=== PATIENT | female | born 1980 | race Caucasian/White ===

== ENCOUNTER 2023-11-25 17:30 | Emergency (ER) | payer OTHER, SELFPAY ==
[2023-11-25 17:38] VITALS: BP 130/77; PULSE 70; RESP 16; O2SAT 100
[2023-11-25 17:43] LABS: Glucometer 34 mg/dL (74-106)
--- NOTE | 2023-11-25 17:58 | PC.NURSE ---
pt pulled out of vehicle -- pt is awake but not alert. very pale and diaphoretic. assisted into wheelchair. BS checked 34 upon arrival. STAT dextrose syringe admin IV through 20 gauge. pt is already starting to look and feel better. talking and making sense at this time. at bedside
[2023-11-25] MEDS: DEXTROSE 50 %-WATER 25 GM/50 ML SYRINGE IV (18:00)
--- NOTE | 2023-11-25 18:07 | ED_ITS ---
HPI - General Adult General Chief complaint: Weakness Stated complaint: hypoglycemia Time Seen by Provider: 11/25/23 18:02 Source: patient and family Mode of arrival: Wheelchair History of Present Illness HPI narrative: 43-year-old female presents to the emergency department with with report of low blood sugar. came home this afternoon to find her with decreased responsiveness. Triage nurse reports that patient was in her car when he found her. Patient is diabetic on both insulin and metformin. They discovered her blood sugar to be low when she got here, established IV, gave her D50 and currently patient is awake, alert x 3 and voices no complaints or concerns. agrees that patient appears to be at baseline. Quality:?as above Severity:?moderate Timing:?as above, improved Context: Normal setting and activity? Modifying factors:?none Associated symptoms: none Related Data Home Medications Medication Instructions Recorded Confirmed insulin glargine 100 unit/mL (3 25 unit subcut .QHS 11/25/23 11/25/23 mL) subcutaneous pen (Lantus Solostar U-100 Insulin) insulin lispro 100 unit/mL 1 sliding scale dose subcut TID 11/25/23 11/25/23 subcutaneous pen (Humalog KwikPen (U-100) Insulin) Allergies Allergy/AdvReac Type Severity Reaction Status Date / Time Unable to Assess Allergy Verified 11/25/23 17:40 Review of Systems ROS Narrative CONST: Denies fever, chills HENT: Denies congestion, sore throat EYES: Denies eye redness, visual disturbance RESP: Denies cough, shortness of breath CV: Denies chest pain, palpitations GI: Denies abd pain, nausea, vomiting : Denies dysuria, flank pain, frequency MS: Denies back pain, myalgias SKIN: + diaphoresis. Denies color change, rash NEURO: +change in responsiveness. Denies numbness, weakness PSYCHIATRIC: Denies confusion, agitation Exam Narrative Exam Narrative: Vital signs reviewed Nurses notes noted CONST: Nontoxic, well appearing, well nourished, in no distress.? No diaphoresis.?? HENT: normocephalic, atraumatic, moist mucous membrane, no abnormalities of the nose noted, hearing normal EYES: normal appearing conjunctiva, no apparent discharge bilat NECK: normal appearance CV: normal rate, regular rhythm, no murmur RESP: normal effort, speaking in complete sentences. Lung sounds clear and equal bilat.? No wheezes, rales, rhonchi GI: normal bowel sounds, soft, no distension, nontender : no CVA tenderness MS: no edema, tenderness SKIN: no pallor NEURO: A&Ox 3, no focal findings PSYCH: normal mood, affect Constitutional Vital Signs, click to edit/add: Last Vital Signs Temp 97.3 F L 11/25/23 20:25 Pulse 95 H 11/25/23 20:25 Resp 18 11/25/23 20:25 BP 141/83 11/25/23 20:25 Pulse Ox 100 11/25/23 20:25 O2 Del Method Room Air 11/25/23 20:25 Course Reevaluation(s) Reevaluation #1: Patient is asymptomatic. Repeat blood sugar 1/2 hr after eating was 151. Discussed with patient, , and father results, plan, and disposition. They are agreeable with plan. Time: 20:54 Vital Signs Vital signs: Vital Signs Pulse Rate 70 11/25/23 17:38 Respiratory Rate 16 11/25/23 17:38 Blood Pressure 130/77 11/25/23 17:38 Pulse Oximetry 100 11/25/23 17:38 Temperature 97.3 F L 11/25/23 20:25 Pulse Rate 95 H 11/25/23 20:25 Respiratory Rate 18 11/25/23 20:25 Blood Pressure 141/83 11/25/23 20:25 Pulse Oximetry 100 11/25/23 20:25 Oxygen Delivery Method Room Air 11/25/23 20:25 Medical Decision Making [facility] Narrative Medical decision making narrative: This is a pleasant 43-year-old female who presented to the emergency department with report of change in mental status. She is diabetic, takes insulin, as well as, metformin. Has been outpatient with decreased responsiveness, diaphoresis in her car prior to arrival. On arrival, nursing noted blood sugar to be 38 and administered D50 with almost immediate response. Patient was awake, alert, oriented x 3, lucid without complaints. She states she did take 8 units of insulin prior to eating lunch today. States she had sloppy Julian. On arrival, afebrile, vital signs otherwise stable. On exam, nontoxic, well-appearing patient in no apparent distress. She is not diaphoretic. Heart regular rate and rhythm. Lung sounds clear and equal bilaterally. Labs reveal white blood cell count of 15,000 without signs or symptoms of infection. No anemia, thrombocytopenia, electrolyte imbalance, renal impairment. LFTs unremarkable. Patient remained stable during ED course. Prior to eating, sugar did go down to 98, but she had received fast acting D50 prior to this. Half an hour after eating, blood sugar was stable above 150 and patient felt well enough to go home. Hypoglycemia, insulin reaction favored based on history and physical Infectious etiology less likely based on history and physical Disposition ? The patient was discharged. Plan: Patient will be discharged to home. Condition at time of disposition: stable ? Advised to follow up with her provider. Advised to return for any worsening and/or development of new, concerning signs or symptoms Lab Data Labs: Lab Results 11/25/23 11/25/23 11/25/23 Range/Units 17:37 18:10 18:27 WBC 15.4 H (4.0-11.0) 10^3/uL RBC 4.19 L (4.20-5.40) 10^6/uL Hgb 12.3 (12.0-16.0) g/dL Hct 37.6 (36.0-48.0) % MCV 89.7 (81.0-99.0) fL MCH 29.4 (26.7-34.0) pg MCHC 32.7 (29.9-35.2) g/dL RDW 12.7 (11.0-15.0) % Plt Count 247 (150-450) 10^3/uL MPV 11.4 (9.5-13.5) fL Neut % (Auto) 86.2 H (43.0-75.0) % Lymph % (Auto) 8.6 L (20.5-60.0) % [place] % (Auto) 3.9 (1.7-12.0) % Eos % (Auto) 0.3 L (0.9-7.0) % Baso % (Auto) 0.3 (0.2-2.0) % Neut # (Auto) 13.3 H (1.4-6.5) 10^3/uL Lymph # (Auto) 1.3 (1.2-3.8) 10^3/uL [place] # (Auto) 0.6 (0.3-0.8) 10^3/uL Eos # (Auto) 0.1 (0.0-0.7) 10^3/uL Baso # (Auto) 0.1 (0.0-0.1) 10^3/uL Abs Immat Gran (auto) 0.11 H (0.00-0.03) 10^3/uL Imm/Tot Granulo (auto) 0.7 H (0.0-0.5) % Sodium 138 (136-145) mmol/L Potassium 3.5 (3.5-5.1) mmol/L Chloride 103 (98-107) mmol/L Carbon Dioxide 23.9 (21.0-32.0) mmol/L Anion Gap 14.6 BUN 18.0 (7.0-18.0) mg/dL Creatinine 0.94 (0.55-1.02) mg/dL Est GFR ( Amer) >60 (>=60) Est GFR (Non-Af Amer) >60 (>=60) BUN/Creatinine Ratio 19.1 Glucose 122 H (74-106) mg/dL Calcium 9.3 (8.5-10.1) mg/dL Total Bilirubin 0.3 (0.2-1.0) mg/dL AST 10 L (15-37) U/L ALT 15 (14-59) U/L Alkaline Phosphatase 66 (46-116) U/L Total Protein 8.1 (6.4-8.2) g/dL Albumin 3.8 (3.4-5.0) g/dL Globulin 4.3 g/dL Albumin/Globulin Ratio 0.9 Serum HCG, Qual Negative (NEGATIVE) POC Glucose 34 L* 145 H (74-106) mg/dL 11/25/23 11/25/23 Range/Units 19:44 20:18 WBC (4.0-11.0) 10^3/uL RBC (4.20-5.40) 10^6/uL Hgb (12.0-16.0) g/dL Hct (36.0-48.0) % MCV (81.0-99.0) fL MCH (26.7-34.0) pg MCHC (29.9-35.2) g/dL RDW (11.0-15.0) % Plt Count (150-450) 10^3/uL MPV (9.5-13.5) fL Neut % (Auto) (43.0-75.0) % Lymph % (Auto) (20.5-60.0) % [place] % (Auto) (1.7-12.0) % Eos % (Auto) (0.9-7.0) % Baso % (Auto) (0.2-2.0) % Neut # (Auto) (1.4-6.5) 10^3/uL Lymph # (Auto) (1.2-3.8) 10^3/uL [place] # (Auto) (0.3-0.8) 10^3/uL Eos # (Auto) (0.0-0.7) 10^3/uL Baso # (Auto) (0.0-0.1) 10^3/uL Abs Immat Gran (auto) (0.00-0.03) 10^3/uL Imm/Tot Granulo (auto) (0.0-0.5) % Sodium (136-145) mmol/L Potassium (3.5-5.1) mmol/L Chloride (98-107) mmol/L Carbon Dioxide (21.0-32.0) mmol/L Anion Gap BUN (7.0-18.0) mg/dL Creatinine (0.55-1.02) mg/dL Est GFR ( Amer) (>=60) Est GFR (Non-Af Amer) (>=60) BUN/Creatinine Ratio Glucose (74-106) mg/dL Calcium (8.5-10.1) mg/dL Total Bilirubin (0.2-1.0) mg/dL AST (15-37) U/L ALT (14-59) U/L Alkaline Phosphatase (46-116) U/L Total Protein (6.4-8.2) g/dL Albumin (3.4-5.0) g/dL Globulin g/dL Albumin/Globulin Ratio Serum HCG, Qual (NEGATIVE) POC Glucose 95 151 H (74-106) mg/dL Discharge Plan Discharge Chief Complaint: Weakness Clinical Impression: Acute alteration in mental status, Hypoglycemia Patient Disposition: Home, Self-Care Time of Disposition Decision: 20:53 Condition: Good Mode of Transportation: Private Vehicle Prescriptions / Home Meds: No Action insulin glargine [Lantus Solostar U-100 Insulin] 100 unit/mL (3 mL) insulin pen 25 unit SUBCUT .QHS insulin lispro [Humalog KwikPen Insulin] 100 unit/mL insulin pen 1 sliding scale dose SUBCUT TID Rx Instructions: 6-8-10 UNITS WITH MEALS AND SLIDING SCALE # 2-UP TO 30 UNITS PER DAY Instructions: Hypoglycemia in a Person with Diabetes (ED) Stand Alone Forms: Portal Instructions Referrals: Dalton Bowens MD [Primary Care Provider] - 1 week Discharge Date/Time: 11/25/23 21:05
[2023-11-25 18:12] LABS: Glucometer 145 mg/dL (74-106)
[2023-11-25 18:35] LABS: Basophils Absolute Auto 0.1 10^3/uL (0.0-0.1); Basophils Percent Auto 0.3 % (0.2-2.0); Eosinophils Absolute Auto 0.1 10^3/uL (0.0-0.7); Eosinophils Percent Auto 0.3 % (0.9-7.0); Hematocrit 37.6 % (36.0-48.0); Hemoglobin 12.3 g/dL (12.0-16.0); Immature Granulocytes Abs Auto 0.11 10^3/uL (0.00-0.03); Immature Granulocytes Pct Auto 0.7 % (0.0-0.5); Lymphocytes Absolute Auto 1.3 10^3/uL (1.2-3.8); Lymphocytes Percent Auto 8.6 % (20.5-60.0); Mean Corpuscular HGB Conc 32.7 g/dL (29.9-35.2); Mean Corpuscular Hemoglobin 29.4 pg (26.7-34.0); Mean Corpuscular Volume 89.7 fL (81.0-99.0); Mean Platelet Volume 11.4 fL (9.5-13.5); Monocytes Absolute Auto 0.6 10^3/uL (0.3-0.8); Monocytes Percent Auto 3.9 % (1.7-12.0); Neutrophils Absolute Auto 13.3 10^3/uL (1.4-6.5); Neutrophils Percent Auto 86.2 % (43.0-75.0); Platelet Count 247 10^3/uL (150-450); Red Blood Count 4.19 10^6/uL (4.20-5.40); Red Cell Distribution Width 12.7 % (11.0-15.0); White Blood Count 15.4 10^3/uL (4.0-11.0)
[2023-11-25 18:47] LABS: HCG Qualitative NEGATIVE (NEGATIVE)
[2023-11-25 18:49] LABS: Alanine Aminotransferase 15 U/L (14-59); Albumin Globulin Ratio 0.9; Albumin Level 3.8 g/dL (3.4-5.0); Alkaline Phosphatase 66 U/L (46-116); Anion Gap 14.6; Aspartate Amino Transferase 10 U/L (15-37); BUN Creatinine Ratio 19.1; Bilirubin Total 0.3 mg/dL (0.2-1.0); Calcium 9.3 mg/dL (8.5-10.1); Carbon Dioxide 23.9 mmol/L (21.0-32.0); Chloride 103 mmol/L (98-107); Estimated GFR (African America >60 (>=60); Estimated GFR (Non-African Ame >60 (>=60); Globulin 4.3 g/dL; Glucose 122 mg/dL (74-106); Potassium 3.5 mmol/L (3.5-5.1); Sodium 138 mmol/L (136-145); Total Protein 8.1 g/dL (6.4-8.2)
[2023-11-25 19:10] VITALS: RESP 16
[2023-11-25 19:45] LABS: Glucometer 95 mg/dL (74-106)
[2023-11-25 20:19] LABS: Glucometer 151 mg/dL (74-106)
[2023-11-25 20:25] VITALS: BP 141/83; PULSE 95; RESP 18; TEMP 36.3; O2SAT 100
== END 2023-11-25 21:05 | disposition home or self-care (01) ==
PROVIDERS: Physician Assistant; Emergency Provider Emergency Medicine; PCP Family Medicine
DX: E11.649 Type 2 diabetes mellitus with hypoglycemia without coma (principal); Z79.4 Long term (current) use of insulin; Z79.84 Long term (current) use of oral hypoglycemic drugs; R41.82 Altered mental status, unspecified
CPT/HCPCS: 36415; 80053; 82948; 84703; 85025; 99284

== ENCOUNTER 2024-02-20 07:29 | Outpatient (OUT) | payer OTHER, SELFPAY ==
--- OUTSIDE RECORDS SUMMARY | 2024-02-20 07:33 | XMS_ITS | CCD ---
Author Organization [facility] Care Team Providers Care Blood Bank Custodian Name Role Phone Magnus Rincon Unavailable Unavailable Magnus Rincon Unavailable Unavailable Beltran London~[id number] UNKNOWN Unavailable Unavailable LITA, DR GONG Primary Care Unavailable SACHINY, DR GONG Admitting Unavailable LITA, DR GONG Attending Unavailable SACHINY, DR GONG Primary Care Unavailable SACHINY, DR GONG Admitting Unavailable HOY, DR GONG Attending Unavailable HOY, DR GONG Attending Unavailable HOY, DR GONG Consulting Unavailable SACHINY, DR GONG Primary Care Unavailable SACHINY, DR GONG Admitting Unavailable Problems Problem Classification Problem Date Documented Da te Episodic/Chronic Diabetes mellitus without complication (1 source) Type 2 diabetes mellitus without complications; Translations: [TYPE 2 DM WITHOUT COMPLICATIONS] Onset: 08-28-2022 Chronic Disorders of lipid metabolism (1 source) Hyperlipidemia, unspecified; Translations: [HYPERLIPIDEMIA UNSPECIFIED] Onset: 08-28-2022 Chronic Essential hypertension (1 source) Essential (primary) hypertension; Translations: [ESSENTIAL PRIMARY HYPERTENSION] Onset: 08-28-2022 Chronic Malaise and fatigue (4 sources) Other fatigue; Translations: [OTHER FATIGUE] Onset: 08-23-2022 Episodic Nutritional deficiencies (1 source) Vitamin D deficiency, unspecified; Translations: [VITAMIN D DEFICIENCY UNSPECIFIED] Onset: 08-28-2022 Chronic Results Test Name Value Interpretation Reference Range Facil ity INSULINon 08-25-2022 Insulin 5.3 uIU/mL Normal 2.6-24.9 [facility] Comment on above: Performed By: #### I NSULIN #### [facility] [address] [address] [address] Bo Soto CBC AUTO DIFFon 08-23-2022 BASO # 0.0 103/ul Normal 0.0-0.1 [facility] Comment on above: Performed By: #### C BC #### [facility] [address] [address] [address] Bo Soto Basophils/100 WBC (Bld) 0.4 % Normal 0.2-2.0 [facility] Comment on above: Performed By: #### C BC #### [facility] [address] [address] [address] Bo Soto EO # 0.2 103/ul Normal 0.0-0.7 [facility] Comment on above: Performed By: #### C BC #### [facility] [address] [address] [address] Bo Soto Eosinophils/100 WBC (Bld) 1.7 % Normal 0.9-7.0 [facility] Comment on above: Performed By: #### C BC #### [facility] [address] [place] [address] Dr. Bo Soto Erythrocyte distribution width (RBC) [Ratio] 11.9 % Normal 11.0-15.0 [facility] Comment on above: Performed By: #### C BC #### [facility] [address] [place] [address] Dr. Bo Soto Hematocrit (Bld) [Volume fraction] 41.8 % Normal 36.0-48.0 [facility] Comment on above: Performed By: #### C BC #### [facility] [address] [place] [address] Dr. Bo Soto Hemoglobin (Bld) [Mass/Vol] 13.9 g/dL Normal 12.0-16.0 [facility] Comment on above: Performed By: #### C BC #### [facility] [address] [place] [address] Dr. Bo Soto IG # 0.07 10e3/ul Critically high 0.00-0.[address] [facility] Comment on above: Performed By: #### C BC #### [facility] [address] [place] [address] Dr. Bo Soto IG % 0.8 % Critically high 0.0-0.5 [facility] Comment on above: Performed By: #### C BC #### [facility] [address] [place] [address] Dr. Bo Soto LYMPH # 3.9 103/ul Critically high 1.2-3.8 [facility] Comment on above: Performed By: #### C BC #### [facility] [address] [place] [address] Dr. Bo Soto Lymphocytes/100 WBC (Bld) 41.9 % Normal 20.5-60.0 [facility] Comment on above: Performed By: #### C BC #### [facility] [address] [place] [address] Dr. Bo Soto MANUAL DIFF REQ NO Normal [facility] Comment on above: Performed By: #### C BC #### [facility] [address] [place] [address] Dr. Bo Soto MCH (RBC) [Entitic mass] 29.2 pg Normal 26.7-34.0 [facility] Comment on above: Performed By: #### C BC #### [facility] [address] [place] [address] Dr. Bo Soto MCHC (RBC) [Mass/Vol] 33.3 g/dL Normal 29.9-35.2 [facility] Comment on above: Performed By: #### C BC #### [facility] [address] [place] [address] Dr. Bo Soto MCV (RBC) [Entitic vol] 87.8 fL Normal 81.0-99.0 [facility] Comment on above: Performed By: #### C BC #### [facility] [address] [place] [address] Dr. Bo Soto MONO # 0.4 103/ul Normal 0.3-0.8 [facility] Comment on above: Performed By: #### C BC #### [facility] [address] [place] [address] Dr. Bo Soto Monocytes/100 WBC (Bld) 4.8 % Normal 1.7-12.0 [facility] Comment on above: Performed By: #### C BC #### [facility] [address] [address] [address] Bo Soto NEUT # 4.7 103/ul Normal 1.4-6.5 [facility] Comment on above: Performed By: #### C BC #### [facility] [address] [place] [address] Dr. Bo Soto Neutrophils/100 WBC (Bld) 50.4 % Normal 43.0-75.0 [facility] Comment on above: Performed By: #### C BC #### [facility] [address] [place] [address] Dr. Bo Soto Platelet mean volume (Bld) [Entitic vol] 11.2 fL Normal 9.5-13.5 [facility] Comment on above: Performed By: #### C BC #### [facility] [address] [place] [address] Dr. Bo Soto PLT 284 103/ul Normal 150-450 [facility] Comment on above: Performed By: #### C BC #### [facility] [address] [place] [address] Dr. Bo Soto RBC 4.76 106/ul Normal 4.20-5.40 [facility] Comment on above: Performed By: #### C BC #### [facility] [address] [place] [address] Dr. Bo Soto WBC 9.2 103/ul Normal 4.0-11.0 [facility] Comment on above: Performed By: #### C BC #### [facility] [address] [place] [address] Dr. Bo Soto FREE T3on 08-23-2022 FREE T3 2.66 pg/mlL Normal 2.18-3.98 [facility] Comment on above: Performed By: #### L IPID, TSH, FT3, T4, CMP #### [facility] [address] [place] [address] Dr. Bo Soto GLYCOHEMOGLOBIN A1Con 2021 ADA RECOMMENDATION SEE BELOW Normal [facility] Comment on above: Result Comment: ADA RECOMMENDED LIMIT 4.0 - 6.0 ADA THERAPEUTIC TARGET < 7.0 ACTION SUGGESTED > 7.0 Performed By: #### A 1C #### [facility] [address] [address] [address] Bo Soto Glucose [Mass/Vol] 413 mg/dL Normal [facility] Comment on above: Performed By: #### A 1C #### [facility] [address] [address] [address] Bo Soto Glycohemoglobin A1c >16.0 Critically high 4.5-6.2 [facility] Comment on above: Performed By: #### A 1C #### [facility] [address] [address] [address] Bo Soto LIPID PROFILEon 08-23-2022 CHOL-HDL RATIO NORM SEE BELOW Normal [facility] Comment on above: Result Comment: 3.3 - 4.4 LOW RISK 4.4 - 7.1 AVERAGE RISK 7.1 - 11.0 MODERATE RISK >11.0 HIGH RISK Performed By: #### L IPID, TSH, FT3, T4, CMP #### [facility] [address] [address] [address] Bo Soto Cholesterol [Mass/Vol] 246 mg/dL Critically high <=200 [facility] Comment on above: Performed By: #### L IPID, TSH, FT3, T4, CMP #### [facility] [address] [address] [address] Bo Soto Cholesterol in HDL [Mass/Vol] 40 mg/dL Normal 40-60 [facility] Comment on above: Performed By: #### L IPID, TSH, FT3, T4, CMP #### [facility] [address] [address] [address] Bo Soto Cholesterol in LDL [Mass/Vol] 157.6 mg/dL Normal [facility] Comment on above: Performed By: #### L IPID, TSH, FT3, T4, CMP #### [facility] [address] [address] [address] Bo Soto Cholesterol.total/Cho lesterol in HDL [Mass ratio] 6.2 {ratio} Normal [facility] Comment on above: Performed By: #### L IPID, TSH, FT3, T4, CMP #### [facility] [address] [address] [address] Bo Soto HDL NORMAL > or = 60 mg/dl - LOW CARDIOVASCULAR RISK <40 mg/dl - HIGH CARDIOVASCULAR RISK Normal [facility] Comment on above: Performed By: #### L IPID, TSH, FT3, T4, CMP #### [facility] [address] [address] [address] Bo Soto LDL CALC NORMAL SEE BELOW Normal [facility] Comment on above: Result Comment: <100 mg/dl OPTIMAL 100 - 129 mg/dl NEAR OR ABOVE OPTIMAL 130 - 159 mg/dl BORDERLINE HIGH 160 - 189 mg/dl HIGH >190 mg/dl VERY HIGH Performed By: #### L IPID, TSH, FT3, T4, CMP #### [facility] [address] [place] [address] Dr. Bo Soto Triglyceride [Mass/Vol] 242 mg/dL Critically high <=150 [facility] Comment on above: Performed By: #### L IPID, TSH, FT3, T4, CMP #### [facility] [address] [address] [address] Bo Soto VLDL CALC 48.4 mg/dL Normal [facility] Comment on above: Performed By: #### L IPID, TSH, FT3, T4, CMP #### [facility] [address] [place] [address] Dr. Bo Soto PROF 14(COMP METB)on 022 Albumin [Mass/Vol] 3.7 g/dL Normal 3.4-5.0 [facility] Comment on above: Performed By: #### L IPID, TSH, FT3, T4, CMP #### [facility] [address] [address] [address] Bo Soto Albumin/Globulin [Mass ratio] 0.9 {ratio} Normal [facility] Comment on above: Performed By: #### L IPID, TSH, FT3, T4, CMP #### [facility] [address] [place] [address] Dr. Bo Soto ALP [Catalytic activity/Vol] 71 U/L Normal 46-116 [facility] Comment on above: Performed By: #### L IPID, TSH, FT3, T4, CMP #### [facility] [address] [place] [address] Dr. Bo Soto ALT [Catalytic activity/Vol] 23 U/L Normal 14-59 [facility] Comment on above: Performed By: #### L IPID, TSH, FT3, T4, CMP #### [facility] [address] [place] [address] Dr. Bo Soto Anion gap [Moles/Vol] 12.7 mmol/L Normal [facility] Comment on above: Performed By: #### L IPID, TSH, FT3, T4, CMP #### [facility] [address] [place] [address] Dr. Bo Soto AST [Catalytic activity/Vol] 11 U/L Critically low 15-37 [facility] Comment on above: Performed By: #### L IPID, TSH, FT3, T4, CMP #### [facility] [address] [place] [address] Dr. Bo Soto Bilirubin [Mass/Vol] 0.3 mg/dL Normal 0.2-1.0 [facility] Comment on above: Performed By: #### L IPID, TSH, FT3, T4, CMP #### [facility] [address] [place] [address] Dr. Bo Soto Calcium [Mass/Vol] 9.5 mg/dL Normal 8.5-10.1 [facility] Comment on above: Performed By: #### L IPID, TSH, FT3, T4, CMP #### [facility] [address] [place] [address] Dr. Bo Soto Chloride [Moles/Vol] 97 mmol/L Critically low 98-107 [facility] Comment on above: Performed By: #### L IPID, TSH, FT3, T4, CMP #### [facility] [address] [place] [address] Dr. Bo Soto CO2 [Moles/Vol] 26.5 mmol/L Normal 21.0-32.0 [facility] Comment on above: Performed By: #### L IPID, TSH, FT3, T4, CMP #### [facility] [address] [place] [address] Dr. Bo Soto Creatinine [Mass/Vol] 0.92 mg/dL Normal 0.55-1.02 [facility] Comment on above: Performed By: #### L IPID, TSH, FT3, T4, CMP #### [facility] [address] [place] [address] Dr. Bo Soto EGFR-AF VENEZUELAN >60 Normal >=60 [facility] Comment on above: Performed By: #### L IPID, TSH, FT3, T4, CMP #### [facility] [address] [place] [address] Dr. Bo Soto EGFR-NON AF VENEZUELAN >60 Normal >=60 [facility] Comment on above: Performed By: #### L IPID, TSH, FT3, T4, CMP #### [facility] [address] [place] [address] Dr. Bo Soto Globulin (S) [Mass/Vol] 4.2 g/dL Normal [facility] Comment on above: Performed By: #### L IPID, TSH, FT3, T4, CMP #### [facility] [address] [place] [address] Dr. Bo Soto Glucose [Mass/Vol] 371 mg/dL Critically high 74-106 [facility] Comment on above: Performed By: #### L IPID, TSH, FT3, T4, CMP #### [facility] [address] [place] [address] Dr. Bo Soto Potassium [Moles/Vol] 4.2 mmol/L Normal 3.5-5.1 [facility] Comment on above: Performed By: #### L IPID, TSH, FT3, T4, CMP #### [facility] [address] [place] [address] Dr. Bo Soto Protein [Mass/Vol] 7.9 g/dL Normal 6.4-8.2 [facility] Comment on above: Performed By: #### L IPID, TSH, FT3, T4, CMP #### [facility] [address] [place] [address] Dr. Bo Soto Sodium [Moles/Vol] 132 mmol/L Critically low 136-145 Th [facility] Comment on above: Performed By: #### L IPID, TSH, FT3, T4, CMP #### [facility] [address] [place] [address] Dr. Bo Soto Urea nitrogen [Mass/Vol] 17.0 mg/dL Normal 7.0-18.0 [facility] Comment on above: Performed By: #### L IPID, TSH, FT3, T4, CMP #### [facility] [address] [place] [address] Dr. Bo Soto Urea nitrogen/Creatinine [Mass ratio] 18.5 mg/mg Normal [facility] Comment on above: Performed By: #### L IPID, TSH, FT3, T4, CMP #### [facility] [address] [place] [address] Dr. Bo Soto T4on 08-23-2022 T4 [Mass/Vol] 10.30 ug/dL Normal 4.80-13.90 [facility] Comment on above: Performed By: #### L IPID, TSH, FT3, T4, CMP #### [facility] [address] [place] [address] Dr. Bo Soto TSHon 08-23-2022 TSH 1.231 uIU/mL Normal 0.358-3.740 [facility] Comment on above: Performed By: #### L IPID, TSH, FT3, T4, CMP #### [facility] [address] [place] [address] Dr. Bo Soto VITAMIN D 25 OHon 08-23-2022 VIT D 25-OH 18.8 ng/mL Normal [facility] Comment on above: Performed By: #### V ITAD #### [facility] [address] [place] [address] Dr. Bo Soto VIT D RANGES SEE BELOW Normal [facility] Comment on above: Result Comment: <20 ng/mL Vit D deficient 20 - <30 ng/mL Vit D insufficient 30 - 100 ng/mL Vit D sufficient >100 ng/mL Potential Toxicity Performed By: #### V ITAD #### [facility] [address] [address] [address] Bo Soto Encounters Encounter Date Encounter Type Care Provider Facility Start: 01-06-2024 End: 01-06-2024 ambulatory [facility] Work Phone: Start: 01-06-2024 End: 01-06-2024 Patient encounter procedure [facility] Work Phone: Start: 12-15-2023 Non-patient / Non-visit [facility] Work Phone: Start: 08-23-2022 End: 08-24-[address] BELTRAN LONDON Facility:[facility] Start: 05-01-[address] BELTRAN LONDON Facility :[facility] Start: 09-30-[address] BELTRAN LONDON Facility :[facility] Start: 03-19-2017 End: 03-19-2017 Emergency department patient visit Magnus Sergey [place] Payers Date Payer Category Payer Private Health Insurance [id number] 1980 Unknown [id number] 1980 Unknown [id number] 1981 Unknown [id number] 1958 Self-pay 1958 Unknown [id number] Unknown [employer] [id number] Social History Date Type Detail Facility [facility] Work Phone: Start: 1980 Sex Assigned At Female F [facility] Evaluation note Note Date & Type Note Facility Evaluation note No assessment information availa syl [facility] Work Phone: Summary Purpose Family History No Family History Records FoundNo Family History Records Found Advance Directives Advance Directive Response Recorded Date/ Time Advance Directives No December 21 12:36pm Additional Source Comments INFORMATION SOURCE (unrecogn ized section and content) DATE CREATED AUTHOR 04/13/2018 [facility] DATE CREATED AUTHOR AUTHOR'S ORGANIZ ATION 08/29/2022 [facility] Teams (unrecognized sec tion and content) Team Status: Active Member Role Status Dates Beltran London MD Primary Care Provider Active Team Status: Active Member Role Status Dates Merna Bond RPH Attending Provider Active Start: December 15, 2023 Team Status: Inactive Member Role Status Dates Alvin Mathis RN Attending Provider Active St art: January 06, 2024 End: January 06, 2024 Beltran London MD Primary Care Provider Active Start: January 06, 2024 End: January 06, 2024 Goals (unrecognized section and content) Goals may be documented in a n alternate section FOR RECORDS PERTAINING TO PATIENTS WHO ARE OR HAVE BEEN ENROLLED IN A CHEMICAL DEPENDENCY/SUBSTANCEABUSE PROGRAM, SOME INFORMATION MAY BE OMITTED. This clinical summary was aggregated from multiple sources. Caution should be exercised in using it in the provision of clinical care. This summary normalizes information from multiple sources, and as a consequence, information in this document may materially change the coding, format and clinical context of patient data. In addition, data may be omitted in some cases. CLINICAL DECISIONS SHOULD BE BASED ON THE PRIMARY CLINICAL RECORDS. [facility] [employer] provides no warranty or guarantee of the accuracy or completeness of information in this document.
[2024-02-20 08:17] LABS: Microalbum Creatinine Ratio Ur 42.7 mg/g (0.0-29.9)
[2024-02-20 09:13] LABS: Albumin Level 3.8 g/dL (3.4-5.0); Anion Gap 13.8; BUN Creatinine Ratio 11.3; Calcium 9.6 mg/dL (8.5-10.1); Carbon Dioxide 25.5 mmol/L (21.0-32.0); Chloride 97 mmol/L (98-107); Chol HDL Ratio 6.3; Cholesterol 253 mg/dL (<=200); Estimated GFR (African America >60 (>=60); Estimated GFR (Non-African Ame 57 (>=60); Glucose 341 mg/dL (74-106); HDL Cholesterol 40 mg/dL (40-60); Phosphorus 3.3 mg/dL (2.6-4.7); Potassium 4.3 mmol/L (3.5-5.1); Sodium 132 mmol/L (136-145); Triglycerides 204 mg/dL (<=150); VLDL CHOLESTEROL 40.8 mg/dL
[2024-02-21 12:14] LABS: C-Peptide, Serum 2.7 ng/mL (1.1-4.4)
== END 2024-02-20 07:30 | disposition home or self-care (01) ==
LOC: LAB 07:32
PROVIDERS: PCP Family Medicine; Visit Provider Internal Medicine
DX: E11.65 Type 2 diabetes mellitus with hyperglycemia (principal); Z79.4 Long term (current) use of insulin; Z71.3 Dietary counseling and surveillance; E55.9 Vitamin D deficiency, unspecified
CPT/HCPCS: 36415; 80061; 80069; 82043; 82306; 82570; 84681

== ENCOUNTER 2024-05-19 16:23 | Emergency (ER) | payer OTHER, SELFPAY ==
[2024-05-19 16:28] VITALS: BP 156/97; PULSE 80; TEMP 36.8; O2SAT 99; BMI 26.5
--- OUTSIDE RECORDS SUMMARY | 2024-05-19 16:31 | XMS_ITS | CCD ---
Author Organization [facility] Care Team Providers Care Care Transport Nurse Name Role Phone Magnus Rincon Unavailable Unavailable Sergey Magnus Unavailable Unavailable Dalton London~[phone] UNKNOWN Unavailable Unavailable LITA, DR GONG Primary Care Unavailable LITA, DR GONG Admitting Unavailable LITA, DR GONG Attending Unavailable LITA, DR GONG Primary Care Unavailable LITA, DR GONG Admitting Unavailable LITA, DR GONG Attending Unavailable SACHINY, DR GONG Attending Unavailable LITA, DR GONG Consulting Unavailable LITA, DR GONG Primary Care Unavailable LITA, DR GONG Admitting Unavailable Problems Problem Classification [...] INSULINon 08-25-2022 Insulin 5.3 uIU/mL Normal 2.6-24.9 [facility] Comment on above: Performed By: #### I NSULIN #### [facility] [address] [address] [address] Bo Soto CBC AUTO DIFFon 08-23-2022 BASO # 0.0 103/ul Normal 0.0-0.1 [facility] Comment on above: Performed By: #### C BC #### [facility] [address] [address] [address] Bo Soto Basophils/100 WBC (Bld) 0.4 % Normal 0.2-2.0 [facility] Comment on above: Performed By: #### C BC #### [facility] [address] [address] [address] Bo Soto EO # 0.2 103/ul Normal 0.0-0.7 [facility] Comment on above: Performed By: #### C BC #### [facility] [address] [address] [address] Bo Soto Eosinophils/100 WBC (Bld) 1.7 % Normal 0.9-7.0 [facility] Comment on above: Performed By: #### C BC #### [facility] [address] [place] [address] Dr. Bo Soot Erythrocyte distribution width (RBC) [Ratio] 11.9 % Normal 11.0-15.0 [facility] Comment on above: Performed By: #### C BC #### [facility] [address] [place] [address] Dr. Bo Soto Hematocrit (Bld) [Volume fraction] 41.8 % Normal 36.0-48.0 [facility] Comment on above: Performed By: #### C BC #### [facility] [address] [place] [address] Dr. Bo Soto Hemoglobin (Bld) [Mass/Vol] 13.9 g/dL Normal 12.0-16.0 [facility] Comment on above: Performed By: #### C BC #### [facility] [address] [place] [address] Dr. Bo Soto IG # 0.07 10e3/ul Critically high 0.00-0.[address] [facility] Comment on above: Performed By: #### C BC #### [facility] [address] [place] [address] Dr. Bo Soto IG % 0.8 % Critically high 0.0-0.[address] [facility] Comment on above: Performed By: #### C BC #### [facility] [address] [address] [address] Bo Soto LYMPH # 3.9 103/ul Critically high 1.2-3.[address] [facility] Comment on above: Performed By: #### C BC #### [facility] [address] [place] [address] Dr. Bo Soto Lymphocytes/100 WBC (Bld) 41.9 % Normal 20.5-60.0 [facility] Comment on above: Performed By: #### C BC #### [facility] [address] [place] [address] Dr. Bo Soto MANUAL DIFF REQ NO Normal [facility] Comment on above: Performed By: #### C BC #### [facility] [address] [place] [address] Dr. Bo Soto MCH (RBC) [Entitic mass] 29.2 pg Normal 26.7-34.0 [facility] Comment on above: Performed By: #### C BC #### [facility] [address] [place] [address] Dr. Bo Soto MCHC (RBC) [Mass/Vol] 33.3 g/dL Normal 29.9-35.2 [facility] Comment on above: Performed By: #### C BC #### [facility] [address] [place] [address] Dr. Bo Soto MCV (RBC) [Entitic vol] 87.8 fL Normal 81.0-99.0 [facility] Comment on above: Performed By: #### C BC #### [facility] [address] [place] [address] Dr. Bo Soto MONO # 0.4 103/ul Normal 0.3-0.8 [facility] Comment on above: Performed By: #### C BC #### [facility] [address] [place] [address] Dr. Bo Soto Monocytes/100 WBC (Bld) 4.8 % Normal 1.7-12.0 [facility] Comment on above: Performed By: #### C BC #### [facility] [address] [place] [address] Dr. Bo Soto NEUT # 4.7 103/ul Normal 1.4-6.5 [facility] Comment on above: Performed By: #### C BC #### [facility] [address] [place] [address] Dr. Bo Soto Neutrophils/100 WBC (Bld) 50.4 % Normal 43.0-75.0 [facility] Comment on above: Performed By: #### C BC #### [facility] [address] [place] [address] Dr. Bo Soto Platelet mean volume (Bld) [Entitic vol] 11.2 fL Normal 9.5-13.5 [facility] Comment on above: Performed By: #### C BC #### [facility] [address] [place] [address] Dr. Bo Soto PLT 284 103/ul Normal 150-450 [facility] Comment on above: Performed By: #### C BC #### [facility] [address] [place] [address] Dr. Bo Soto RBC 4.76 106/ul Normal 4.20-5.40 [facility] Comment on above: Performed By: #### C BC #### [facility] [address] [place] [address] Dr. Bo Soto WBC 9.2 103/ul Normal 4.0-11.0 [facility] Comment on above: Performed By: #### C BC #### [facility] [address] [place] [address] Dr. Bo Soto FREE T3on 08-23-2022 FREE T3 2.66 pg/mlL Normal 2.18-3.98 [facility] Comment on above: Performed By: #### L IPID, TSH, FT3, T4, CMP #### [facility] [address] [place] [address] Dr. Bo Soto GLYCOHEMOGLOBIN A1Con 2021 ADA RECOMMENDATION SEE BELOW Normal [facility] Comment on above: Result Comment: ADA RECOMMENDED LIMIT 4.0 - 6.0 ADA THERAPEUTIC TARGET < 7.0 ACTION SUGGESTED > 7.0 Performed By: #### A 1C #### [facility] [address] [address] [address] Bo Soto Glucose [Mass/Vol] 413 mg/dL Normal [facility] Comment on above: Performed By: #### A 1C #### [facility] [address] [address] [address] Bo Soto Glycohemoglobin A1c >16.0 Critically high 4.5-6.2 [facility] Comment on above: Performed By: #### A 1C #### [facility] [address] [address] [address] Bo Soto LIPID PROFILEon 08-23-2022 CHOL-HDL RATIO NORM SEE BELOW Normal [facility] Comment on above: Result Comment: 3.3 - 4.4 LOW RISK 4.4 - 7.1 AVERAGE RISK 7.1 - 11.0 MODERATE RISK >11.0 HIGH RISK Performed By: #### L IPID, TSH, FT3, T4, CMP #### [facility] [address] [address] [address] Bo Soto Cholesterol [Mass/Vol] 246 mg/dL Critically high <=200 [facility] Comment on above: Performed By: #### L IPID, TSH, FT3, T4, CMP #### [facility] [address] [address] [address] Bo Soto Cholesterol in HDL [Mass/Vol] 40 mg/dL Normal 40-60 [facility] Comment on above: Performed By: #### L IPID, TSH, FT3, T4, CMP #### [facility] [address] [address] [address] Bo oSto Cholesterol in LDL [Mass/Vol] 157.6 mg/dL Normal [facility] Comment on above: Performed By: #### L IPID, TSH, FT3, T4, CMP #### [facility] [address] [address] [address] Bo Soto Cholesterol.total/Cho lesterol in HDL [Mass ratio] 6.2 {ratio} Normal [facility] Comment on above: Performed By: #### L IPID, TSH, FT3, T4, CMP #### [facility] [address] [place] [address] Dr. Bo Soto HDL NORMAL > or = 60 mg/dl - LOW CARDIOVASCULAR RISK <40 mg/dl - HIGH CARDIOVASCULAR RISK Normal [facility] Comment on above: Performed By: #### L IPID, TSH, FT3, T4, CMP #### [facility] [address] [place] [address] Dr. Bo Soto LDL CALC NORMAL SEE BELOW Normal [facility] Comment on above: Result Comment: <100 mg/dl OPTIMAL 100 - 129 mg/dl NEAR OR ABOVE OPTIMAL 130 - 159 mg/dl BORDERLINE HIGH 160 - 189 mg/dl HIGH >190 mg/dl VERY HIGH Performed By: #### L IPID, TSH, FT3, T4, CMP #### [facility] [address] [place] [address] Dr. Bo Soto Triglyceride [Mass/Vol] 242 mg/dL Critically high <=150 [facility] Comment on above: Performed By: #### L IPID, TSH, FT3, T4, CMP #### [facility] [address] [place] [address] Dr. Bo Soto VLDL CALC 48.4 mg/dL Normal [facility] Comment on above: Performed By: #### L IPID, TSH, FT3, T4, CMP #### [facility] [address] [place] [address] Dr. Bo Soto PROF 14(COMP METB)on 022 Albumin [Mass/Vol] 3.7 g/dL Normal 3.4-5.0 [facility] Comment on above: Performed By: #### L IPID, TSH, FT3, T4, CMP #### [facility] [address] [place] [address] Dr. Bo Soto Albumin/Globulin [Mass ratio] 0.9 {ratio} Normal [facility] Comment on above: Performed By: #### L IPID, TSH, FT3, T4, CMP #### [facility] [address] [place] [address] Dr. Bo Soto ALP [Catalytic activity/Vol] 71 U/L Normal 46-116 [facility] Comment on above: Performed By: #### L IPID, TSH, FT3, T4, CMP #### [facility] [address] [address] [address] Bo Soto ALT [Catalytic activity/Vol] 23 U/L Normal 14-59 [facility] Comment on above: Performed By: #### L IPID, TSH, FT3, T4, CMP #### [facility] [address] [place] [address] Dr. Bo Soto Anion gap [Moles/Vol] 12.7 mmol/L Normal Th e [facility] Comment on above: Performed By: #### L IPID, TSH, FT3, T4, CMP #### [facility] [address] [place] [address] Dr. Bo Soto AST [Catalytic activity/Vol] 11 U/L Critically low 15-37 [facility] Comment on above: Performed By: #### L IPID, TSH, FT3, T4, CMP #### [facility] [address] [place] [address] Dr. Bo Soto Bilirubin [Mass/Vol] 0.3 mg/dL Normal 0.2-1.0 [facility] Comment on above: Performed By: #### L IPID, TSH, FT3, T4, CMP #### [facility] [address] [place] [address] Dr. Bo Soto Calcium [Mass/Vol] 9.5 mg/dL Normal 8.5-10.1 [facility] Comment on above: Performed By: #### L IPID, TSH, FT3, T4, CMP #### [facility] [address] [address] [address] Bo Soto Chloride [Moles/Vol] 97 mmol/L Critically low 98-107 [facility] Comment on above: Performed By: #### L IPID, TSH, FT3, T4, CMP #### [facility] [address] [place] [address] Dr. Bo Soto CO2 [Moles/Vol] 26.5 mmol/L Normal 21.0-32.0 [facility] Comment on above: Performed By: #### L IPID, TSH, FT3, T4, CMP #### [facility] [address] [place] [address] Dr. Bo Soto Creatinine [Mass/Vol] 0.92 mg/dL Normal 0.55-1.02 [facility] Comment on above: Performed By: #### L IPID, TSH, FT3, T4, CMP #### [facility] [address] [place] [address] Dr. Bo Soto EGFR-AF LATVIAN >60 Normal >=60 [facility] Comment on above: Performed By: #### L IPID, TSH, FT3, T4, CMP #### [facility] [address] [place] [address] Dr. Bo Soto EGFR-NON AF LATVIAN >60 Normal >=60 [facility] Comment on above: Performed By: #### L IPID, TSH, FT3, T4, CMP #### [facility] [address] [place] [address] Dr. Bo Soto Globulin (S) [Mass/Vol] 4.2 g/dL Normal [facility] Comment on above: Performed By: #### L IPID, TSH, FT3, T4, CMP #### [facility] [address] [place] [address] Dr. Bo Soto Glucose [Mass/Vol] 371 mg/dL Critically high 74-106 T [facility] Comment on above: Performed By: #### L IPID, TSH, FT3, T4, CMP #### [facility] [address] [place] [address] Dr. Bo Soto Potassium [Moles/Vol] 4.2 mmol/L Normal 3.5-5.1 [facility] Comment on above: Performed By: #### L IPID, TSH, FT3, T4, CMP #### [facility] [address] [place] [address] Dr. Bo Soto Protein [Mass/Vol] 7.9 g/dL Normal 6.4-8.2 [facility] Comment on above: Performed By: #### L IPID, TSH, FT3, T4, CMP #### [facility] [address] [place] [address] Dr. Bo Soto Sodium [Moles/Vol] 132 mmol/L Critically low 136-145 [facility] Comment on above: Performed By: #### L IPID, TSH, FT3, T4, CMP #### [facility] [address] [place] [address] Dr. Bo Soto Urea nitrogen [Mass/Vol] 17.0 mg/dL Normal 7.0-18.0 [facility] Comment on above: Performed By: #### L IPID, TSH, FT3, T4, CMP #### [facility] [address] [place] [address] Dr. Bo Soto Urea nitrogen/Creatinine [Mass ratio] 18.5 mg/mg Normal [facility] Comment on above: Performed By: #### L IPID, TSH, FT3, T4, CMP #### [facility] [address] [place] [address] Dr. Bo Soto T4on 08-23-2022 T4 [Mass/Vol] 10.30 ug/dL Normal 4.80-13.90 [facility] Comment on above: Performed By: #### L IPID, TSH, FT3, T4, CMP #### [facility] [address] [place] [address] Dr. Bo Soto TSHon 08-23-2022 TSH 1.231 uIU/mL Normal 0.358-3.740 [facility] Comment on above: Performed By: #### L IPID, TSH, FT3, T4, CMP #### [facility] [address] [place] [address] Dr. Bo Soto VITAMIN D 25 OHon 08-23-2022 VIT D 25-OH 18.8 ng/mL Normal [facility] Comment on above: Performed By: #### V ITAD #### [facility] [address] [place] [address] Dr. Bo Soto VIT D RANGES SEE BELOW Normal [facility] Comment on above: Result Comment: <20 ng/mL Vit D deficient 20 - <30 ng/mL Vit D insufficient 30 - 100 ng/mL Vit D sufficient >100 ng/mL Potential Toxicity Performed By: #### V ITAD #### [facility] [address] [address] [address] Bo Soto Encounters Encounter Date Encounter Type Care Provider Facility Start: 04-26-2024 End: 04-26-2024 ambulatory [facility] Work Phone: Start: 04-26-2024 End: 04-26-2024 Patient encounter procedure [facility] Work Phone: Start: 02-18-2024 End: 02-18-2024 Patient encounter procedure [facility] Work Phone: Start: 01-06-2024 End: 01-06-2024 ambulatory [facility] Work Phone: Start: 01-06-2024 End: 01-06-2024 Patient encounter procedure [facility] Work Phone: Start: 12-15-2023 Non-patient / Non-visit [facility] Work Phone: Start: 08-23-2022 End: 08-24-[address] DALTON LONDON Facility:[facility] Start: 05-01-[address] DALTON LONDON Facility :[facility] Start: 09-30-[address] DALTON LONDON Facility :[facility] Start: 03-19-2017 End: 03-19-2017 Emergency department patient visit Magnus Rincon Facility:[facility] Payers Date Payer Category Payer Private Health Insurance [id number] 1980 Unknown [id number] 1980 Unknown [id number] 1980 Unknown [id number] 1958 Self-pay 1958 Unknown [id number] Unknown [employer] [id number] Social History Date Type Detail Facility Tobacco smoking stat [facility] Unknown if ever smoked [facility] Work Phone: Start: 1980 Sex Assigned At Female [facility] Evaluation note Note Date & Type Note Facility Evaluation note No assessment information availa ble [facility] Work Phone: Summary Purpose Family History No Family History Records FoundNo Family History Records Found Advance Directives Advance Directive Response Recorded Date/ Time Advance Directives No December 21 12:36pm Chief Complaint and Reason for Visit Chief Complaint New DM per Micheal DM2 follow up 2 mo Additional Source Comments INFORMATION SOURCE (unrecogn ized section and content) DATE CREATED AUTHOR 04/13/2018 [facility] DATE CREATED AUTHOR AUTHOR'S ORGANIZ ATION 08/29/2022 [facility] Care Teams (unrecognized sec tion and content) Team Status: Active Member Role Status Dates Dalton London MD Primary Care Provider Active Team Status: Inactive Member Role Status Dates Dalton London MD Primary Care Provider Active Start: February 18, 2024 End: February 18, 2024 DB Gibson Attending Provider Active Start: February 18, 2024 End: February 18, 2024 Team Status: Inactive Member Role Status Dates Dalton London MD Primary Care Provider Active Start: April 26, 2024 End: April 26, 2024 DB Gibson Attending Provider Active Start: April 26, 2024 End: April 26, 2024 Team Status: Active Member Role Status Dates Dalton London MD Primary Care Provider Active Team Status: Active Member Role Status Dates Merna Bond RPH Attending Provider Active Start: December 15, 2023 Team Status: Inactive Member Role Status Dates Alvin Mathis RN Attending Provider Active St art: January 06, 2024 End: January 06, 2024 Dalton London MD Primary Care Provider Active Start: January 06, 2024 End: January 06, 2024 Team Status: Inactive Member Role Status Dates Dalton London MD Primary Care Provider Active Start: February 18, 2024 End: February 18, 2024 DB Gibson Attending Provider Active Start: February 18, 2024 End: February 18, 2024 Team Status: Inactive Member Role Status Dates Dalton London MD Primary Care Provider Active Start: April 26, 2024 End: April 26, 2024 DB Gibson Attending Provider Active Start: April 26, 2024 End: April 26, 2024 Goals (unrecognized section and content) Goals may be documented in a n alternate sectionGoals may be documented in an alternate section FOR RECORDS PERTAINING TO PATIENTS [...] BE BASED ON THE PRIMARY CLINICAL RECORDS. [facility] [employer] [facility]. provides no warranty or guarantee of the accuracy or completeness of information in this document.
--- NOTE | 2024-05-19 16:55 | CT_ITS ---
The [address] [address] Patient Name: KATHY PORTILLO MRN: [id number] date: 1980 Sex: F Assigned Patient Location: ER Current Patient Location: ER Accession/Order Number: [id number] Exam Date: 05/19/2024 17:42 Report Date: 05/19/2024 18:30 At the request of: LYDIA MADISON Procedure: CT head/brain wo con CT head/brain wo con, CT facial bones wo con, 05/19/2024 5:42 PM EDT INDICATION: vision changes, head injury COMPARISON: There is no appropriate prior study for comparison. TECHNIQUE: Axial CT images of the brain from skull base to vertex, including portions of the face and sinuses, were obtained without contrast . Multiplanar reformatted images were generated and reviewed as needed. Dose reduction techniques were achieved by using automated exposure control and/or adjustment of mA and/or kV according to patient size and/or use of iterative reconstruction technique. FINDINGS: The cerebral sulci as well as ventricular system are appropriate for age. There is no intracranial mass, mass effect, midline shift, intra or extra-axial fluid collection or hemorrhage. The visualized portions of orbits, mastoid air cells as well as paranasal sinuses are unremarkable. Left-sided lillie bullosa is noted. There is no suspicious osteolytic or osteoblastic lesion. There is no facial fracture. CT/CT head/brain wo con IMPRESSION: No acute intracranial process is noted. No fracture is noted. Electronically authenticated by: NANCY MIRELES Date: 05/19/2024 18:30
--- NOTE | 2024-05-19 16:55 | CT_ITS ---
The [address] [address] Patient Name: KATHY PORTILLO MRN: [id number] date: 1980 Sex: F Assigned Patient Location: ER Current Patient Location: ER Accession/Order Number: [id number] Exam Date: 05/19/2024 17:42 Report Date: 05/19/2024 18:30 At the request of: LYDIA MADISON Procedure: CT facial bones wo con CT head/brain wo con, CT facial bones wo con, 05/19/2024 5:42 PM EDT INDICATION: vision changes, head injury COMPARISON: There is no appropriate prior study for comparison. TECHNIQUE: Axial CT images of the brain from skull base to vertex, including portions of the face and sinuses, were obtained without contrast . Multiplanar reformatted images were generated and reviewed as needed. Dose reduction techniques were achieved by using automated exposure control and/or adjustment of mA and/or kV according to patient size and/or use of iterative reconstruction technique. FINDINGS: The cerebral sulci as well as ventricular system are appropriate for age. There is no intracranial mass, mass effect, midline shift, intra or extra-axial fluid collection or hemorrhage. The visualized portions of orbits, mastoid air cells as well as paranasal sinuses are unremarkable. Left-sided lillie bullosa is noted. There is no suspicious osteolytic or osteoblastic lesion. There is no facial fracture. CT/CT facial bones wo con IMPRESSION: No acute intracranial process is noted. No fracture is noted. Electronically authenticated by: NANCY MIRELES Date: 05/19/2024 18:30
--- NOTE | 2024-05-19 16:55 | CT_ITS ---
The [address] [address] Patient Name: KATHY PORTILLO MRN: [id number] date: 1980 Sex: F Assigned Patient Location: ER Current Patient Location: ER Accession/Order Number: [id number] Exam Date: 05/19/2024 17:42 Report Date: 05/19/2024 18:30 At the request of: LYDIA MADISON Procedure: CT angio neck CT angio neck, CT angio head, 05/19/2024 5:42 PM EDT INDICATION: vison changes, trauma COMPARISON: There is no appropriate prior study for comparison. TECHNIQUE: Pre and postcontrast enhanced CT angiography of the head and neck were acquired with contrast .3 D MIP images were reconstructed in sagittal and coronal format at the scanner and were evaluated at the time of dictation. Dose reduction techniques were achieved by using automated exposure control and/or adjustment of mA and/or kV according to patient size and/or use of iterative reconstruction technique. FINDINGS: The great vessels enhance normally. No filling defects are identified within the carotid arteries. There is no stenosis at the origin of the internal carotid arteries. No abnormality of the ophthalmic arteries is noted. No abnormality of nondalton of Yanes is noted. The DAVID MCA and CARRIER BLOWER are unremarkable. The anterior and posterior communicating arteries are patent. There is no aneurysm or significant stenosis. No abnormality of the vertebral and basilar arteries is noted. No mass, mass effect or midline shift or hemorrhage in the brain parenchyma is noted. No significant soft tissue abnormality within the neck is noted. The visualized portion of the lungs is unremarkable. No suspicious bone lesion is noted. Mild multilevel degenerative changes of cervical spine. CT/CT angio neck IMPRESSION: No CT evidence of embolus or severe stenosis or dissection in the major arteries in the current study. The ophthalmic arteries are patent. CAROTID STENOSIS REFERENCE: MILD = <50% stenosis. MODERATE = 50-69% stenosis. SEVERE = >70% stenosis. Electronically authenticated by: NANCY MIRELES Date: 05/19/2024 18:30
--- NOTE | 2024-05-19 16:55 | CT_ITS ---
The [address] [address] Patient Name: KATHY PORTILLO MRN: [id number] date: 1980 Sex: F Assigned Patient Location: ER Current Patient Location: ER Accession/Order Number: [id number] Exam Date: 05/19/2024 17:42 Report Date: 05/19/2024 18:30 At the request of: LYDIA MADISON Procedure: CT angio head CT angio neck, CT angio head, 05/19/2024 5:42 PM EDT INDICATION: vison changes, trauma COMPARISON: There is no appropriate prior study for comparison. TECHNIQUE: Pre and postcontrast enhanced CT angiography of the head and neck were acquired with contrast .3 D MIP images were reconstructed in sagittal and coronal format at the scanner and were evaluated at the time of dictation. Dose reduction techniques were achieved by using automated exposure control and/or adjustment of mA and/or kV according to patient size and/or use of iterative reconstruction technique. FINDINGS: The great vessels enhance normally. No filling defects are identified within the carotid arteries. There is no stenosis at the origin of the internal carotid arteries. No abnormality of the ophthalmic arteries is noted. No abnormality of nulato of Yanes is noted. The DAVID MCA and [facility] are unremarkable. The anterior and posterior communicating arteries are patent. There is no aneurysm or significant stenosis. No abnormality of the vertebral and basilar arteries is noted. No mass, mass effect or midline shift or hemorrhage in the brain parenchyma is noted. No significant soft tissue abnormality within the neck is noted. The visualized portion of the lungs is unremarkable. No suspicious bone lesion is noted. Mild multilevel degenerative changes of cervical spine. CT/CT angio head IMPRESSION: No CT evidence of embolus or severe stenosis or dissection in the major arteries in the current study. The ophthalmic arteries are patent. CAROTID STENOSIS REFERENCE: MILD = <50% stenosis. MODERATE = 50-69% stenosis. SEVERE = >70% stenosis. Electronically authenticated by: NANCY MIRELES Date: 05/19/2024 18:30
[2024-05-19 17:23] LABS: Basophils Absolute Auto 0.1 10^3/uL (0.0-0.1); Basophils Percent Auto 0.7 % (0.2-2.0); Eosinophils Absolute Auto 0.2 10^3/uL (0.0-0.7); Eosinophils Percent Auto 2.2 % (0.9-7.0); Hematocrit 37.2 % (36.0-48.0); Hemoglobin 12.1 g/dL (12.0-16.0); Immature Granulocytes Abs Auto 0.02 10^3/uL (0.00-0.03); Immature Granulocytes Pct Auto 0.2 % (0.0-0.5); Lymphocytes Absolute Auto 2.5 10^3/uL (1.2-3.8); Lymphocytes Percent Auto 31.2 % (20.5-60.0); Mean Corpuscular HGB Conc 32.5 g/dL (29.9-35.2); Mean Corpuscular Hemoglobin 29.4 pg (26.7-34.0); Mean Corpuscular Volume 90.3 fL (81.0-99.0); Mean Platelet Volume 11.3 fL (9.5-13.5); Monocytes Absolute Auto 0.5 10^3/uL (0.3-0.8); Monocytes Percent Auto 5.7 % (1.7-12.0); Neutrophils Absolute Auto 4.9 10^3/uL (1.4-6.5); Platelet Count 254 10^3/uL (150-450); Red Blood Count 4.12 10^6/uL (4.20-5.40); Red Cell Distribution Width 12.5 % (11.0-15.0); White Blood Count 8.1 10^3/uL (4.0-11.0)
[2024-05-19 17:30] LABS: Anion Gap 16.1; BUN Creatinine Ratio 18.2; Calcium 9.2 mg/dL (8.5-10.1); Carbon Dioxide 23.9 mmol/L (21.0-32.0); Chloride 104 mmol/L (98-107); Estimated GFR (African America >60 (>=60); Estimated GFR (Non-African Ame >60 (>=60); Glucose 131 mg/dL (74-106); HCG Qualitative NEGATIVE (NEGATIVE); Internal Control Within Normal Limits; Sodium 140 mmol/L (136-145)
[2024-05-19 18:21] VITALS: BP 146/86; PULSE 65; O2SAT 98
[2024-05-19] MEDS: TETRACAINE HCL 0.5% OP SOL 80 DROP/4 ML BOTTLE OP (18:42)
[2024-05-19] MEDS: FLUORESCEIN SODIUM 1 MG STRIP OP (18:43)
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
[2024-05-19 19:33] VITALS: BP 143/84; PULSE 70; O2SAT 100
== END 2024-05-19 19:35 | disposition home or self-care (01) ==
PROVIDERS: Emergency Provider Student in an Organized Health Care Education/Training Program; PCP Family Medicine
DX: H53.8 Other visual disturbances (principal); V49.9XXA Car occupant (driver) (passenger) injured in unspecified traffic accident, initial encounter
CPT/HCPCS: 36415; 70450; 70486; 70496; 70498; 80048; 84703; 85025; 99285; Q9967

== ENCOUNTER 2024-10-08 07:24 | Outpatient (OUT) | payer OTHER, SELFPAY ==
--- OUTSIDE RECORDS SUMMARY | 2024-10-08 07:28 | XMS_ITS | CCD ---
Author Organization [facility] Care Team Providers Care Geophysics Teacher Name Role Phone Magnus Rincon Unavailable Unavailable Magnus Rincon Unavailable Unavailable Beltran [place]~[phone] UNKNOWN Unavailable Unavailable LITA, DR GONG Primary Care Unavailable LITA, DR GONG Admitting Unavailable LITA, DR GONG Attending Unavailable LITA, DR GONG Primary Care Unavailable DR BELTRAN L[place]ON Admitting Unavailable LITA, DR GONG Attending Unavailable LITA, DR GONG Attending Unavailable LITA, DR GONG Consulting Unavailable DR BELTRAN LONDON Primary Care Unavailable DR BELTRAN LONDON Admitting Unavailable KSENIA ARREDONDO Attending Unavailable KSENIA ARREDONDO Attending Unavailable Medications Current Medications Medication Drug Class(es) Dates Sig (Normalized) Sig (Original) Blood-Glucose Sensor (Freestyle Kemi 3 Sensor) device (1 source) Start: 06-30-2024 Blood-Glucose Sensor (Freestyle Kemi 3 Sensor) device Active EACH .ROUTE .MEDSUPPLY June 30, 2024 12:00am As directed cholecalciferol 0.025 mg oral capsule (1 source) Vitamin D Start: 06-30-2024 take 25 ug by mouth once daily Cholecalciferol (Vitamin D3) Active 25 MCG PO Daily June 30, 2024 12:00am Insulin Aspart U-100 (Novolog Flexpen U-100 Insulin) 100 unit/mL (3 mL) insulin pen (1 source) Start: 06-30-2024 Insulin Aspart U-100 (Novolog Flexpen U-100 Insulin) 100 unit/mL (3 mL) insulin pen Active 0 SUBCUT Three times daily June 30, 2024 12:00am ICR 1:10 ac subcutaneously three times daily; Insulin Glargine-Yfgn (Semglee(Insulin Glarg-Yfgn)Pen) 100 unit/mL (3 mL) insulin pen (3 sources) Start: 06-30-2024 Insulin Glargine-Yfgn (Semglee(Insulin Glarg-Yfgn)Pen) 100 unit/mL (3 mL) insulin pen Active 20 UNIT SUBCUT Every evening 30 June 30, 2024 4:17pm Start: 06-30-2024 End: 06-30-2024 Insulin Glargine-Yfgn (Semgl ee(Insulin Glarg-Yfgn)Pen) 100 unit/mL (3 mL) insulin pen Discontinued 20 UNIT SUBCUT Every evening June 30, 2024 4:15pm June 30, 2024 4:17pm Start: 06-30-2024 End: 06-30-2024 Insulin Glargine-Yfgn (Semgl ee(Insulin Glarg-Yfgn)Pen) 100 unit/mL (3 mL) insulin pen Discontinued 25 UNIT SUBCUT Every evening June 30, 2024 12:00am June 30, 2024 4:16pm loratadine 10 mg oral tablet (1 source) Start: 06-30-2024 take 1 tablet by mouth once daily Loratadine (Allergy Relief (Loratadine)) 10 mg tablet Active 10 MG PO Daily June 30, 2024 12:00am metFORMIN hydrochloride 500 mg oral tablet (2 sources) Biguanide Start: 06-30-2024 End: 06-30-2024 take 500 mg by mouth twice daily Metformin Active 500 MG PO Twice daily 180 June 30, 2024 4:14pm simvastatin 20 mg oral tablet (1 source) HMG-CoA Reductase Inhibitor Start: 06-30-2024 take 20 mg by mouth once daily at bedtime Simvastatin Active 20 MG PO Daily at bedtime June 30, 2024 12:00am Vit A-Vit C-Vit Z-Rsvk-Qgfznh (1 source) Start: 06-30-2024 take 1 tablet by mouth once daily Vit A-Vit C-Vit Z-Vfxp-Iumeff Active 1 TAB PO Daily June 30, 2024 12:00am Completed/Discontinued Medications Medication Drug Class(es) Dates Sig (Normalized) Sig (Original) ofloxacin 3 mg/ml ophthalmic solution (1 source) Quinolone Antimicrobial Start: 06-30-2024 End: 06-30-2024 take 1 drop(s) into the eye(s) four times daily Ofloxacin Discontinued 1 DROPS OPHTHALMIC .right eye qid June 30, 2024 12:00am June 30, 2024 2:58pm prednisoLONE acetate 10 mg/ml ophthalmic suspension (1 source) Corticosteroid Start: 06-30-2024 End: 06-30-2024 Prednisolone Acetate Discontinued DROPS OPHTHALMIC June 30, 2024 12:00am June 30, 2024 2:58pm Problems Problem Classification Problem Date Documented Date Episodic/Chronic Administrative/social admission (2 sources) Patient encounter status; Translations: [Dietary counseling and surveillance] 06-30-2024 Episodic Diabetes mellitus with complications (2 sources) Hyperglycemia due to type 2 diabetes mellitus; Translations: [Type 2 diabetes mellitus with hyperglycemia] 06-30-2024 Chronic Diabetes mellitus without complication (1 source) Type 2 diabetes mellitus without complications; Translations: [TYPE 2 DM WITHOUT COMPLICATIONS] Onset: 08-28-2022 Chronic Disorders of lipid metabolism (3 sources) Hyperlipidemia, unspecified; Translations: [Hyperlipidemia] Onset: 08-28-2022 06-30-2024 Chronic Essential hypertension (3 sources) Essential (primary) hypertension; Translations: [Hypertensive disorder] Onset: 08-28-2022 06-30-2024 Chronic Malaise and fatigue (4 sources) Other fatigue; Translations: [OTHER FATIGUE] Onset: 08-23-2022 Episodic Nutritional deficiencies (1 source) Vitamin D deficiency, unspecified; Translations: [VITAMIN D DEFICIENCY UNSPECIFIED] Onset: 08-28-2022 Chronic Other nutritional; endocrine; and metabolic disorders (1 source) Overweight in adulthood with body mass index of 25 or more but less than 30; Translations: [Body mass index (BMI) 28.0-28.9, adult] 06-30-2024 Episodic Other nutritional; endocrine; and metabolic disorders (1 source) Body mass index (BMI) 28.0-28.9, adult; Translations: [Body Mass Index 28.0-28.9, adult] 06-30-2024 Episodic Retinal detachments; defects; vascular occlusion; and retinopathy (2 sources) Retinal disorder; Translations: [Unspecified background retinopathy] 06-30-2024 Chronic Results Test Name Value Interpretation Reference Range Facil ity INSULINon 08-25-2022 Insulin 5.3 uIU/mL Normal 2.6-24.9 [facility] Comment on above: Performed By: #### I NSULIN #### [facility] [address] [place] [address] Dr. Bo Soto CBC AUTO DIFFon 08-23-2022 BASO # 0.0 103/ul Normal 0.0-0.1 [facility] Comment on above: Performed By: #### C BC #### [facility] [address] [address] [address] Bo Soto Basophils/100 WBC (Bld) 0.4 % Normal 0.2-2.0 [facility] Comment on above: Performed By: #### C BC #### [facility] [address] [place] [address] Dr. Bo Soto EO # 0.2 103/ul Normal 0.0-0.7 [facility] Comment on above: Performed By: #### C BC #### [facility] [address] [place] [address] Dr. Bo Soto Eosinophils/100 WBC (Bld) 1.7 % Normal 0.9-7.0 [facility] Comment on above: Performed By: #### C BC #### [facility] [address] [place] [address] Dr. Bo Soto Erythrocyte distribution width (RBC) [Ratio] 11.9 % Normal 11.0-15.0 [facility] Comment on above: Performed By: #### C BC #### [facility] [address] [place] [address] Dr. Bo Soto Hematocrit (Bld) [Volume fraction] 41.8 % Normal 36.0-48.0 [facility] Comment on above: Performed By: #### C BC #### [facility] [address] [place] [address] Dr. Bo Soto Hemoglobin (Bld) [Mass/Vol] 13.9 g/dL Normal 12.0-16.0 [facility] Comment on above: Performed By: #### C BC #### [facility] [address] [place] [address] Dr. Bo Soto IG # 0.07 10e3/ul Critically high 0.00-0.03 [facility] Comment on above: Performed By: #### C BC #### [facility] [address] [place] [address] Dr. Bo Soto IG % 0.8 % Critically high 0.0-0.5 [facility] Comment on above: Performed By: #### C BC #### [facility] [address] [place] [address] Dr. Bo Soto LYMPH # 3.9 103/ul Critically high 1.2-3.8 [facility] Comment on above: Performed By: #### C BC #### [facility] [address] [place] [address] Dr. Bo Soto Lymphocytes/100 WBC (Bld) 41.9 % Normal 20.5-60.0 [facility] Comment on above: Performed By: #### C BC #### [facility] [address] [place] [address] Dr. Bo Soto MANUAL DIFF REQ NO Normal [facility] Comment on above: Performed By: #### C BC #### [facility] [address] [place] [address] Dr. Bo Soto MCH (RBC) [Entitic mass] 29.2 pg Normal 26.7-34.0 [facility] Comment on above: Performed By: #### C BC #### [facility] [address] [place] [address] Dr. Bo Soto MCHC (RBC) [Mass/Vol] 33.3 g/dL Normal 29.9-35.2 [facility] Comment on above: Performed By: #### C BC #### [facility] [address] [place] [address] Dr. Bo Soto MCV (RBC) [Entitic vol] 87.8 fL Normal 81.0-99.0 [facility] Comment on above: Performed By: #### C BC #### [facility] [address] [place] [address] Dr. Bo Soto MONO # 0.4 103/ul Normal 0.3-0.8 [facility] Comment on above: Performed By: #### C BC #### [facility] [address] [place] [address] Dr. Bo Soto Monocytes/100 WBC (Bld) 4.8 % Normal 1.7-12.0 [facility] Comment on above: Performed By: #### C BC #### [facility] [address] [place] [address] Dr. Bo Soto NEUT # 4.7 103/ul Normal 1.4-6.5 [facility] Comment on above: Performed By: #### C BC #### [facility] [address] [place] [address] Dr. Bo Soto Neutrophils/100 WBC (Bld) 50.4 % Normal 43.0-75.0 [facility] Comment on above: Performed By: #### C BC #### [facility] [address] [place] [address] Dr. Bo Soto Platelet mean volume (Bld) [Entitic vol] 11.2 fL Normal 9.5-13.5 [facility] Comment on above: Performed By: #### C BC #### [facility] [address] [place] [address] Dr. Bo Soto PLT 284 103/ul Normal 150-450 [facility] Comment on above: Performed By: #### C BC #### [facility] [address] [place] [address] Dr. Bo Soto RBC 4.76 106/ul Normal 4.20-5.40 [facility] Comment on above: Performed By: #### C BC #### [facility] [address] [place] [address] Dr. Bo Soto WBC 9.2 103/ul Normal 4.0-11.0 [facility] Comment on above: Performed By: #### C BC #### [facility] [address] [place] [address] Dr. Bo Soto FREE T3on 08-23-2022 FREE T3 2.66 pg/mlL Normal 2.18-3.98 [facility] Comment on above: Performed By: #### L IPID, TSH, FT3, T4, CMP #### [facility] [address] [place] [address] Dr. Bo Soto GLYCOHEMOGLOBIN A1Con 2021 ADA RECOMMENDATION SEE BELOW Normal [facility] Comment on above: Result Comment: ADA RECOMMENDED LIMIT 4.0 - 6.0 ADA THERAPEUTIC TARGET < 7.0 ACTION SUGGESTED > 7.0 Performed By: #### A 1C #### [facility] [address] [address] [address] Bo Soto Glucose [Mass/Vol] 413 mg/dL Normal [facility] Comment on above: Performed By: #### A 1C #### [facility] [address] [place] [address] Dr. Bo Soto Glycohemoglobin A1c >16.0 Critically high 4.5-6.2 [facility] Comment on above: Performed By: #### A 1C #### [facility] [address] [place] [address] Dr. Bo Soto LIPID PROFILEon 08-23-2022 CHOL-HDL RATIO NORM SEE BELOW Normal [facility] Comment on above: Result Comment: 3.3 - 4.4 LOW RISK 4.4 - 7.1 AVERAGE RISK 7.1 - 11.0 MODERATE RISK >11.0 HIGH RISK Performed By: #### L IPID, TSH, FT3, T4, CMP #### [facility] [address] [place] [address] Dr. Bo Soto Cholesterol [Mass/Vol] 246 mg/dL Critically high <=200 [facility] Comment on above: Performed By: #### L IPID, TSH, FT3, T4, CMP #### [facility] [address] [address] [address] Bo Soto Cholesterol in HDL [Mass/Vol] 40 mg/dL Normal 40-60 [facility] Comment on above: Performed By: #### L IPID, TSH, FT3, T4, CMP #### [facility] [address] [address] [address] Bo Soto Cholesterol in LDL [Mass/Vol] 157.6 mg/dL Normal [facility] Comment on above: Performed By: #### L IPID, TSH, FT3, T4, CMP #### [facility] [address] [address] [address] Bo Soto Cholesterol.total/Cho lesterol in HDL [Mass ratio] 6.2 {ratio} Normal [facility] Comment on above: Performed By: #### L IPID, TSH, FT3, T4, CMP #### [facility] [address] [address] [address] Bo Soto HDL NORMAL > or = 60 mg/dl - LOW CARDIOVASCULAR RISK <40 mg/dl - HIGH CARDIOVASCULAR RISK Normal [facility] Comment on above: Performed By: #### L IPID, TSH, FT3, T4, CMP #### [facility] [address] [address] [address] Bo Soto LDL CALC NORMAL SEE BELOW Normal [facility] Comment on above: Result Comment: <100 mg/dl OPTIMAL 100 - 129 mg/dl NEAR OR ABOVE OPTIMAL 130 - 159 mg/dl BORDERLINE HIGH 160 - 189 mg/dl HIGH >190 mg/dl VERY HIGH Performed By: #### L IPID, TSH, FT3, T4, CMP #### [facility] [address] [address] [address] Bo Soto Triglyceride [Mass/Vol] 242 mg/dL Critically high <=150 [facility] Comment on above: Performed By: #### L IPID, TSH, FT3, T4, CMP #### [facility] [address] [address] [address] Bo Soto VLDL CALC 48.4 mg/dL Normal [facility] Comment on above: Performed By: #### L IPID, TSH, FT3, T4, CMP #### [facility] [address] [address] [address] Bo Soto PROF 14(COMP METB)on 022 Albumin [Mass/Vol] 3.7 g/dL Normal 3.4-5.0 [facility] Comment on above: Performed By: #### L IPID, TSH, FT3, T4, CMP #### [facility] [address] [address] [address] Bo Soto Albumin/Globulin [Mass ratio] 0.9 {ratio} Normal [facility] Comment on above: Performed By: #### L IPID, TSH, FT3, T4, CMP #### [facility] [address] [place] [address] Dr. Bo Soto ALP [Catalytic activity/Vol] 71 U/L Normal 46-116 [facility] Comment on above: Performed By: #### L IPID, TSH, FT3, T4, CMP #### [facility] [address] [place] [address] Dr. Bo Soto ALT [Catalytic activity/Vol] 23 U/L Normal 14-59 [facility] Comment on above: Performed By: #### L IPID, TSH, FT3, T4, CMP #### [facility] [address] [place] [address] Dr. Bo Soto Anion gap [Moles/Vol] 12.7 mmol/L Normal [facility] Comment on above: Performed By: #### L IPID, TSH, FT3, T4, CMP #### [facility] [address] [place] [address] Dr. Bo Soto AST [Catalytic activity/Vol] 11 U/L Critically low 15-37 [facility] Comment on above: Performed By: #### L IPID, TSH, FT3, T4, CMP #### [facility] [address] [place] [address] Dr. Bo Soto Bilirubin [Mass/Vol] 0.3 mg/dL Normal 0.2-1.0 [facility] Comment on above: Performed By: #### L IPID, TSH, FT3, T4, CMP #### [facility] [address] [place] [address] Dr. Bo Soto Calcium [Mass/Vol] 9.5 mg/dL Normal 8.5-10.1 [facility] Comment on above: Performed By: #### L IPID, TSH, FT3, T4, CMP #### [facility] [address] [place] [address] Dr. Bo Soto Chloride [Moles/Vol] 97 mmol/L Critically low 98-107 [facility] Comment on above: Performed By: #### L IPID, TSH, FT3, T4, CMP #### [facility] [address] [place] [address] Dr. Bo Soto CO2 [Moles/Vol] 26.5 mmol/L Normal 21.0-32.0 [facility] Comment on above: Performed By: #### L IPID, TSH, FT3, T4, CMP #### [facility] [address] [place] [address] Dr. Bo Soto Creatinine [Mass/Vol] 0.92 mg/dL Normal 0.55-1.02 [facility] Comment on above: Performed By: #### L IPID, TSH, FT3, T4, CMP #### [facility] [address] [place] [address] Dr. Bo Soto EGFR-AF P[place]CAIRN ISLANDER >60 Normal >=60 [facility] Comment on above: Performed By: #### L IPID, TSH, FT3, T4, CMP #### [facility] [address] [place] [address] Dr. Bo Soto EGFR-NON AF [place]ER >60 Normal >=60 [facility] Comment on above: Performed By: #### L IPID, TSH, FT3, T4, CMP #### [facility] [address] [place] [address] Dr. Bo Soto Globulin (S) [Mass/Vol] 4.2 g/dL Normal [facility] Comment on above: Performed By: #### L IPID, TSH, FT3, T4, CMP #### [facility] [address] [place] [address] Dr. Bo Soto Glucose [Mass/Vol] 371 mg/dL Critically high 74-106 [facility] Comment on above: Performed By: #### L IPID, TSH, FT3, T4, CMP #### [facility] [address] [place] [address] Dr. Bo Soto Potassium [Moles/Vol] 4.2 mmol/L Normal 3.5-5.1 [facility] Comment on above: Performed By: #### L IPID, TSH, FT3, T4, CMP #### [facility] [address] [address] [address] Bo Soto Protein [Mass/Vol] 7.9 g/dL Normal 6.4-8.2 [facility] Comment on above: Performed By: #### L IPID, TSH, FT3, T4, CMP #### [facility] [address] [place] [address] Dr. Bo Soto Sodium [Moles/Vol] 132 mmol/L Critically low 136-145 [facility] Comment on above: Performed By: #### L IPID, TSH, FT3, T4, CMP #### [facility] [address] [place] [address] Dr. Bo Soto Urea nitrogen [Mass/Vol] 17.0 mg/dL Normal 7.0-18.0 [facility] Comment on above: Performed By: #### L IPID, TSH, FT3, T4, CMP #### [facility] [address] [place] [address] Dr. Bo Soto Urea nitrogen/Creatinine [Mass ratio] 18.5 mg/mg Normal [facility] Comment on above: Performed By: #### L IPID, TSH, FT3, T4, CMP #### [facility] [address] [place] [address] Dr. Bo Soto T4on 08-23-2022 T4 [Mass/Vol] 10.30 ug/dL Normal 4.80-13.90 [facility] Comment on above: Performed By: #### L IPID, TSH, FT3, T4, CMP #### [facility] [address] [place] [address] Dr. Bo Soto TSHon 08-23-2022 TSH 1.231 uIU/mL Normal 0.358-3.740 [facility] Comment on above: Performed By: #### L IPID, TSH, FT3, T4, CMP #### [facility] [address] [place] [address] Dr. Bo Soto VITAMIN D 25 OHon 08-23-2022 VIT D 25-OH 18.8 ng/mL Normal [facility] Comment on above: Performed By: #### V ITAD #### [facility] [address] [place], [place] [address] Dr. Bo Soto VIT D RANGES SEE BELOW Normal [facility] Comment on above: Result Comment: <20 ng/mL Vit D deficient 20 - <30 ng/mL Vit D insufficient 30 - 100 ng/mL Vit D sufficient >100 ng/mL Potential Toxicity Performed By: #### V ITAD #### [facility] [address] [id number] Bo Soto Vital Signs Date Time Vital Sign Value Performing Clinician Faci lity 06-30-2024 14:38-0400 Body height 154.94 cm [facility] 06-30-2024 14:38-0400 Body mass index (BMI) [Ratio] 28.8 kg/m2 [facility] 06-30-2024 14:38-0400 Body weight 69.11 kg [facility] 06-30-2024 14:38-0400 Diastolic blood pressure 91 mm[Hg] [facility] 06-30-2024 14:38-0400 Heart rate 78 /min [facility] 06-30-2024 14:38-0400 Respiratory rate 18 /min [facility] 06-30-2024 14:38-0400 SaO2% (BldA) [Mass fraction] 99 % [facility] 06-30-2024 14:38-0400 Systolic blood pressure 145 mm[Hg] [facility] Encounters Encounter Date Encounter Type Care Provider Facility Start: 06-30-2024 End: 06-30-2024 ambulatory [facility] Work Phone: Start: 06-30-2024 End: 06-30-2024 Patient encounter procedure [facility] Work Phone: Start: 06-21-2024 End: 06-21-2024 ambulatory [facility] Work Phone: Start: 06-21-2024 End: 06-21-2024 Patient encounter [facility] Work Phone: Start: 05-23-2024 End: 05-23-2024 ambulatory KSENIA ARREDONDO Not Available Start: 05-20-2024 End: 05-20-2024 ambulatory KSENIA ARREDONDO Not Available Start: 04-26-2024 End: 04-26-2024 ambulatory [facility] Work Phone: Start: 04-26-2024 End: 04-26-2024 Patient encounter procedure [facility] Work Phone: Start: 02-18-2024 End: 02-18-2024 Patient encounter procedure [facility] Work Phone: Start: 01-06-2024 End: 01-06-2024 ambulatory [facility] Work Phone: Start: 01-06-2024 End: 01-06-2024 Patient encounter procedure [facility] Work Phone: Start: 12-15-2023 Non-patient / Non-visit [facility] Work Phone: Start: 08-23-2022 End: 08-24-[address] BELTRAN LONDON Facility:[facility] Start: 05-01-[address] BELTRAN L[place]ON Facility :[facility] Start: 09-30-[address] BELTRAN L[place]ON Facility :[facility] Start: 03-19-2017 End: 03-19-2017 Emergency department patient visit Magnus Sergey Facility:[facility] Plan of Treatment Date Care Activity Detail Author Comprehensive metabo lic 2000 panel - Serum or Plasma [facility] Patient Education Low blood suga r in people with diabetes [facility] for Diabetics [facility] Work Phone: [facility] Payers Date Payer Category Payer Private Health Insurance [id number] 2017 Private Health Insurance [id number] 1980 Unknown [id number] 1981 Unknown [id number] 1981 Unknown [id number] 1981 Unknown [id number] 1981 Unknown [id number] 1959 Self-pay 1958 Unknown [id number] Unknown [employer] [id number] Social History Date Type Detail Facility Tobacco smoking stat [facility] Unknown if ever smoked [facility] Work Phone: Start: 1980 Sex Assigned At Female F [facility] Start: 06-30-2024 Tobacco smoking stat [facility] Never smoked tobacco (finding) [facility] [facility] Procedure Code Equipment Code Equipment Origin al Text Equipment Identifier Dates Blood Sugar Diagnostic (True Metrix Glucose Test Strip) strip Start: 06-30-2024 Pen Needle, Diab etic (Bd Ultra-Fine Mini Pen Needle) 31 gauge x 3/16 needle Start: 06-30-2024 Chief complaint+Reason for visit Narrative Note Date & Type Note Facility Chief complaint+Reason for visit Narrative Reason for Visit BMI 28.0-28.9,adult Dietary counseling and surveillance Hyperlipidemia Hypertension Retinopathy Type 2 diabetes mellitus with hyperglycemia [facility] Work Phone: Evaluation note Note Date & Type Note Facility Evaluation note No assessment information availa ble [facility] Work Phone: Evaluation note Note Date & Type Note Facility Evaluation note Diagnosis Onset Date BMI 28.0-28.9,adult acute Dietary counseling and surveillance acute Hyperlipidemia acute Hypertension acute Retinopathy acute Type 2 diabetes mellitus with hyperglycemia acute [facility] Work Phone: Summary Purpose Family History Relationship Condition Age at Onset Recorded Date/T olive father Diabetes mellitus Unknown Hypertension Unknown Heart disease Unknown brother Healthy adult Unknown sister Healthy adult Unknown daughter Healthy adult Unknown Advance Directives Advance Directive Response Recorded Date/ Time Advance Directives No December 21 12:36pm Chief Complaint and Reason for Visit Chief Complaint New DM per Micheal DM2 follow up 2 mo Chief Complaint DM2 follow up 2 mo dm follow up 2 mo carb count? Additional Source Comments INFORMATION SOURCE (unrecogn ized section and content) DATE CREATED AUTHOR 04/13/2018 René Perkins [facility] DATE CREATED AUTHOR AUTHOR'S ORGANIZ ATION 08/29/2022 [facility] DATE CREATED AUTHOR AUTHOR'S ORGANIZ ATION 05/24/2024 [facility] EPIC Care Teams (unrecognized sec tion and content) Team Status: Active Member Role Status Otis London MD Primary Care Provider Active Team Status: Inactive Member Role Status Otis London MD Primary Care Provider Active Start: February 18, 2024 End: February 18, 2024 DB Gibson Attending Provider Active Start: February 18, 2024 End: February 18, 2024 Team Status: Inactive Member Role Status Otis London MD Primary Care Provider Active Start: April 26, 2024 End: April 26, 2024 DB Gibson Attending Provider Active Start: April 26, 2024 End: April 26, 2024 Team Status: Active Member Role Status Otis Bond RPH Attending Provider Active Start: December 15, 2023 Team Status: Inactive Member Role Status Otis Mathis RN Attending Provider Active St art: January 06, 2024 End: January 06, 2024 Beltran London MD Primary Care Provider Active Start: January 06, 2024 End: January 06, 2024 Team Status: Inactive Member Role Status Otis London MD Primary Care Provider Active Start: June 21, 2024 End: June 21, 2024 DB Gibson Attending Provider Active Start: June 21, 2024 End: June 21, 2024 Team Status: Inactive Member Role Status Otis London MD Primary Care Provider Active Start: June 30, 2024 End: June 30, 2024 Lindy Prieto APRN Attending Provider Active Start: June 30, 2024 End: June 30, 2024 Goals (unrecognized section and content) Goals may be documented in a n alternate sectionGoals may be documented in an alternate sectionGoals may be documented in an alternate sectionGoals may be documented in an [...] BE BASED ON THE PRIMARY CLINICAL RECORDS. [facility] [employer] [facility] provides no warranty or guarantee of the accuracy or completeness of information in this document.
[2024-10-08 08:18] LABS: Creatinine Urine Random 43.24 mg/dL (20.00-300.00); Microalbumin Urine Random <1.3 mg/dL (<=30.0)
[2024-10-08 08:54] LABS: Alanine Aminotransferase 20 U/L (14-59); Albumin Level 3.8 g/dL (3.4-5.0); Alkaline Phosphatase 49 U/L (46-116); Anion Gap 15.8; Aspartate Amino Transferase 10 U/L (15-37); BUN Creatinine Ratio 14.2; Bilirubin Total 0.4 mg/dL (0.2-1.0); Calcium 9.2 mg/dL (8.5-10.1); Carbon Dioxide 27.5 mmol/L (21.0-32.0); Chloride 102 mmol/L (98-107); Chol HDL Ratio 3.1; Cholesterol 144 mg/dL (<=200); Estimated GFR (African America >60 (>=60 mL/min/1.73m^2); Estimated GFR (Non-African Ame 57 (>=60 mL/min/1.73m^2); Globulin 3.7 g/dL; Glucose 180 mg/dL (74-106); HDL Cholesterol 46 mg/dL (40-60); LDL Cholesterol Calculated 82.4 mg/dL; Potassium 4.3 mmol/L (3.5-5.1); Sodium 141 mmol/L (136-145); Total Protein 7.5 g/dL (6.4-8.2); Triglycerides 78 mg/dL (<=150); VLDL CHOLESTEROL 15.6 mg/dL
[2024-10-09 07:09] LABS: Vitamin B12 740 pg/mL (232-1245)
== END 2024-10-08 07:25 | disposition home or self-care (01) ==
PROVIDERS: PCP Family Medicine
DX: E78.5 Hyperlipidemia, unspecified (principal); E11.65 Type 2 diabetes mellitus with hyperglycemia; Z79.4 Long term (current) use of insulin
CPT/HCPCS: 36415; 80053; 80061; 82043; 82570; 82607; 86337; 86341

== ENCOUNTER 2025-01-14 08:04 | Outpatient (OUT) | payer OTHER, SELFPAY ==
--- OUTSIDE RECORDS SUMMARY | 2025-01-14 08:07 | XMS_ITS | CCD ---
Author Organization [facility] Care Team Providers Care Plastics Process Hand Name Role Phone Magnus Rincon Unavailable Unavailable Magnus Rincon Unavailable Unavailable Beltran [place]~[id number] UNKNOWN Unavailable Unavailable LITA, DR GONG Primary [...] Blood-Glucose Sensor (Freestyle Kemi 3 Sensor) device (2 sources) Start: 06-30-2024 Blood-Glucose Sensor (Freestyle Kemi 3 Sensor) device Active EACH .ROUTE .MEDSUPPLY 1 June 30, 2024 12:00am As directed cholecalciferol 0.025 mg oral capsule (2 sources) Vitamin D Start: 06-30-2024 take 1 capsule by mouth once daily Cholecalciferol (Vitamin D3) 25 mcg (1,000 unit) capsule Active 25 MCG PO Daily June 30, 2024 12:00am Insulin Aspart U-100 (Novolog Flexpen U-100 Insulin) 100 unit/mL (3 mL) insulin pen (3 sources) Start: 10-03-2024 Insulin Aspart U-100 (Novolog Flexpen U-100 Insulin) 100 unit/mL (3 mL) insulin pen Active 0 SUBCUT Three times daily October 03, 2024 5:22pm ICR 1:10 ac subcutaneously three times daily; Start: 06-30-2024 End: 10-03-2024 Insulin Aspart U-100 (Novolo g Flexpen U-100 Insulin) 100 unit/mL (3 mL) insulin pen Discontinued 0 SUBCUT Three times daily June 30, 2024 12:00am October 03, 2024 5:22pm ICR 1:10 ac subcutaneously three times daily; Start: 06-30-2024 Insulin Aspart U-100 (Novolog Flexpen U-100 Insulin) 100 unit/mL (3 mL) insulin pen Active 0 SUBCUT Three times daily June 30, 2024 12:00am ICR 1:10 ac subcutaneously three times daily; Insulin Glargine-Yfgn (Semglee(Insulin Glarg-Yfgn)Pen) 100 unit/mL (3 mL) insulin pen (6 sources) Start: 06-30-2024 Insulin Glargi ne-Yfgn (Semglee(Insulin Glarg-Yfgn)Pen) 100 unit/mL (3 mL) insulin pen Active 20 UNIT SUBCUT Every evening June 30, 2024 4:17pm Start: 06-30-2024 End: 06-30-2024 Insulin Glargine-Yfgn (Semgl ee(Insulin Glarg-Yfgn)Pen) 100 unit/mL (3 mL) insulin pen Discontinued 20 UNIT SUBCUT Every evening June 30, 2024 4:15pm June 30, 2024 4:17pm Start: 06-30-2024 End: 06-30-2024 Insulin Glargine-Yfgn (Semgl ee(Insulin Glarg-Yfgn)Pen) 100 unit/mL (3 mL) insulin pen Discontinued 25 UNIT SUBCUT Every evening June 30, 2024 12:00am June 30, 2024 4:16pm latanoprost 0.05 mg/ml ophthalmic solution (1 source) Prostaglandin Analog Start: 01-09-2025 Latanoprost 0.005 % drops Active DROPS OPHTHALMIC January 09, 2025 12:00am loratadine 10 mg oral tablet (2 sources) Start: 06-30-2024 take 1 tablet by mouth once daily Loratadine (Allergy Relief (Loratadine)) 10 mg tablet Active 10 MG PO Daily June 30, 2024 12:00am metFORMIN hydrochloride 500 mg oral tablet (4 sources) Biguanide Start: 06-30-2024 End: 06-30-2024 take 1 tablet by mouth twice daily Metformin 500 mg tablet Active 500 MG PO Twice daily 180 June 30, 2024 4:14pm simvastatin 20 mg oral tablet (2 sources) HMG-CoA Reductase Inhibitor Start: 06-30-2024 take 1 tablet by mouth once daily at bedtime Simvastatin 20 mg tablet Active 20 MG PO Daily at bedtime June 30, 2024 12:00am Vit A-Vit C-Vit Q-Ihfk-Nhutyf (1 source) Start: 06-30-2024 take 1 tablet by mouth once daily Vit A-Vit C-Vit E-Eskh-Fpxjgu Active 1 TAB PO Daily June 30, 2024 12:00am Vit A-Vit C-Vit Z-Nvxw-Nepudk 7,160-113-100 gxua-wf-jkvt tablet (1 source) Start: 06-30-2024 take 1 tablet by mouth once daily Vit A-Vit C-Vit E-Euyq-Lcnntv 7,160-113-100 idke-ix-abha tablet Active 1 TAB PO Daily June 30, 2024 12:00am Completed/Discontinued Medications Medication Drug Class(es) Dates Sig (Normalized) Sig (Original) ofloxacin 3 mg/ml ophthalmic solution (2 sources) Quinolone Antimicrobial Start: 06-30-2024 End: 06-30-2024 take 0.3 drop(s) into the eye(s) four times daily Ofloxacin 0.3 % drops Discontinued 1 DROPS OPHTHALMIC .right eye qid June 30, 2024 12:00am June 30, 2024 2:58pm Start: 06-30-2024 End: 06-30-2024 take 1 drop(s) into the eye(s) four times daily Ofloxacin Discontinued 1 DROPS OPHTHALMIC .right eye qid June 30, 2024 12:00am June 30, 2024 2:58pm prednisoLONE acetate 10 mg/ml ophthalmic suspension (2 sources) Corticosteroid Start: 06-30-2024 End: 06-30-2024 Prednisolone Acetate 1 % drops,suspension Discontinued DROPS OPHTHALMIC June 30, 2024 12:00am June 30, 2024 2:58pm Start: 06-30-2024 End: 06-30-2024 Prednisolone Acetate Discont inued DROPS OPHTHALMIC June 30, 2024 12:00am June 30, 2024 2:58pm Problems Problem Classification Problem Date Documented Date Episodic/Chronic Administrative/social admission (4 sources) Patient encounter status; Translations: [Dietary counseling and surveillance] 06-30-2024 Episodic Diabetes mellitus with complications (4 sources) Hyperglycemia due to type 2 diabetes mellitus; Translations: [Type 2 diabetes mellitus with hyperglycemia] 06-30-2024 Chronic Diabetes mellitus without complication (1 source) Type 2 diabetes mellitus without complications; Translations: [TYPE 2 DM WITHOUT COMPLICATIONS] Onset: 08-28-2022 Chronic Disorders of lipid metabolism (5 sources) Hyperlipidemia, unspecified; Translations: [Hyperlipidemia] Onset: 08-28-2022 06-30-2024 Chronic Essential hypertension (5 sources) Essential (primary) hypertension; Translations: [Hypertensive disorder] Onset: 08-28-2022 06-30-2024 Chronic Immunizations and screening for infectious disease (2 sources) Autoantibody titer positive; Translations: [Other specified abnormal immunological findings in serum] 01-09-2025 Episodic Malaise and fatigue (4 sources) Other fatigue; Translations: [OTHER FATIGUE] Onset: 08-23-2022 Episodic Nutritional deficiencies (1 source) Vitamin D deficiency, unspecified; Translations: [VITAMIN D DEFICIENCY UNSPECIFIED] Onset: 08-28-2022 Chronic Other nutritional; endocrine; and metabolic disorders (3 sources) Overweight in adulthood with body mass index of 25 or more but less than 30; Translations: [Body mass index (BMI) 28.0-28.9, adult] 06-30-2024 Episodic Other nutritional; endocrine; and metabolic disorders (1 source) Body mass index (BMI) 28.0-28.9, adult; Translations: [Body Mass Index 28.0-28.9, adult] 06-30-2024 Episodic Other nutritional; endocrine; and metabolic disorders (1 source) Body mass index (BMI) 29.0-29.9, adult; Translations: [Body Mass Index 29.0-29.9, adult] 01-09-2025 Episodic Retinal detachments; defects; vascular occlusion; and retinopathy (4 sources) Retinal disorder; Translations: [Unspecified background retinopathy] 06-30-2024 Chronic Results Test Name Value Interpretation Reference Range Facil ity INSULINon 08-25-2022 Insulin 5.3 uIU/mL Normal 2.6-24.9 [facility] Comment on above: Performed By: #### I NSULIN #### [facility] [address] [place] [address] Dr. Bo Soto CBC AUTO DIFFon 08-23-2022 BASO # 0.0 103/ul Normal 0.0-0.1 [facility] Comment on above: Performed By: #### C BC #### [facility] [address] [place] [address] Dr. Bo Soto Basophils/100 WBC (Bld) 0.4 % Normal 0.2-2.0 [facility] Comment on above: Performed By: #### C BC #### [facility] [address] [place] [address] Dr. Bo Soto EO # 0.2 103/ul Normal 0.0-0.7 [facility] Comment on above: Performed By: #### C BC #### [facility] [address] [place] [address] Dr. Bo Soto Eosinophils/100 WBC (Bld) 1.7 % Normal 0.9-7.0 [facility] Comment on above: Performed By: #### C BC #### [facility] [address] [place] [address] Dr. Bo Soto Erythrocyte distribution width (RBC) [Ratio] 11.9 % Normal 11.0-15.0 [facility] Comment on above: Performed By: #### C BC #### [facility] [address] [place] [address] Dr. Bo Soto Hematocrit (Bld) [Volume fraction] 41.8 % Normal 36.0-48.0 [facility] Comment on above: Performed By: #### C BC #### [facility] [address] [place] [address] Dr. Bo Soto Hemoglobin (Bld) [Mass/Vol] 13.9 g/dL Normal 12.0-16.0 [facility] Comment on above: Performed By: #### C BC #### [facility] [address] [place] [address] Dr. Bo Soto IG # 0.07 10e3/ul Critically high 0.00-0.03 [facility] Comment on above: Performed By: #### C BC #### [facility] [address] [place] [address] Dr. Bo Soto IG % 0.8 % Critically high 0.0-0.5 [facility] Comment on above: Performed By: #### C BC #### [facility] [address] [place] [address] Dr. Bo Soto LYMPH # 3.9 103/ul Critically high 1.2-3.8 [facility] Comment on above: Performed By: #### C BC #### [facility] [address] [place] [address] Dr. Bo Soto Lymphocytes/100 WBC (Bld) 41.9 % Normal 20.5-60.0 [facility] Comment on above: Performed By: #### C BC #### [facility] [address] [place] [address] Dr. Bo Soto MANUAL DIFF REQ NO Normal [facility] Comment on above: Performed By: #### C BC #### [facility] [address] [place] [address] Dr. Bo Soto MCH (RBC) [Entitic mass] 29.2 pg Normal 26.7-34.0 [facility] Comment on above: Performed By: #### C BC #### [facility] [address] [place] [address] Dr. Bo Soto MCHC (RBC) [Mass/Vol] 33.3 g/dL Normal 29.9-35.2 [facility] Comment on above: Performed By: #### C BC #### [facility] [address] [place] [address] Dr. Bo Soto MCV (RBC) [Entitic vol] 87.8 fL Normal 81.0-99.0 [facility] Comment on above: Performed By: #### C BC #### [facility] [address] [place] [address] Dr. Bo Soto MONO # 0.4 103/ul Normal 0.3-0.8 [facility] Comment on above: Performed By: #### C BC #### [facility] [address] [place] [address] Dr. Bo Soto Monocytes/100 WBC (Bld) 4.8 % Normal 1.7-12.0 [facility] Comment on above: Performed By: #### C BC #### [facility] [address] [place] [address] Dr. Bo Soto NEUT # 4.7 103/ul Normal 1.4-6.5 [facility] Comment on above: Performed By: #### C BC #### [facility] [address] [place] [address] Dr. Bo Soto Neutrophils/100 WBC (Bld) 50.4 % Normal 43.0-75.0 [facility] Comment on above: Performed By: #### C BC #### [facility] [address] [place] [address] Dr. Bo Soto Platelet mean volume (Bld) [Entitic vol] 11.2 fL Normal 9.5-13.5 [facility] Comment on above: Performed By: #### C BC #### [facility] [address] [place] [address] Dr. Bo Soto PLT 284 103/ul Normal 150-450 [facility] Comment on above: Performed By: #### C BC #### [facility] [address] [place] [address] Dr. Bo Soto RBC 4.76 106/ul Normal 4.20-5.40 [facility] Comment on above: Performed By: #### C BC #### [facility] [address] [place] [address] Dr. Bo Soto WBC 9.2 103/ul Normal 4.0-11.0 [facility] Comment on above: Performed By: #### C BC #### [facility] [address] [place] [address] Dr. Bo Soto FREE T3on 08-23-2022 FREE T3 2.66 pg/mlL Normal 2.18-3.98 [facility] Comment on above: Performed By: #### L IPID, TSH, FT3, T4, CMP #### [facility] [address] [place] [address] Dr. Bo Soto GLYCOHEMOGLOBIN A1Con 2021 ADA RECOMMENDATION SEE BELOW Normal [facility] Comment on above: Result Comment: ADA RECOMMENDED LIMIT 4.0 - 6.0 ADA THERAPEUTIC TARGET < 7.0 ACTION SUGGESTED > 7.0 Performed By: #### A 1C #### [facility] [address] [place] [address] Dr. Bo Soto Glucose [Mass/Vol] 413 mg/dL Normal [facility] Comment on above: Performed By: #### A 1C #### [facility] [address] [place] [address] Dr. Bo Soto Glycohemoglobin A1c >16.0 Critically high 4.5-6.2 [facility] Comment on above: Performed By: #### A 1C #### [facility] [address] [place] [address] Dr. Bo Soto LIPID PROFILEon 08-23-2022 CHOL-HDL RATIO NORM SEE BELOW Normal [facility] Comment on above: Result Comment: 3.3 - 4.4 LOW RISK 4.4 - 7.1 AVERAGE RISK 7.1 - 11.0 MODERATE RISK >11.0 HIGH RISK Performed By: #### L IPID, TSH, FT3, T4, CMP #### [facility] [address] [place] [address] Dr. Bo Soto Cholesterol [Mass/Vol] 246 mg/dL Critically high <=200 [facility] Comment on above: Performed By: #### L IPID, TSH, FT3, T4, CMP #### [facility] [address] [place] [address] Dr. Bo Soto Cholesterol in HDL [Mass/Vol] 40 mg/dL Normal 40-60 [facility] Comment on above: Performed By: #### L IPID, TSH, FT3, T4, CMP #### [facility] [address] [place] [address] Dr. Bo Soto Cholesterol in LDL [Mass/Vol] 157.6 mg/dL Normal [facility] Comment on above: Performed By: #### L IPID, TSH, FT3, T4, CMP #### [facility] [address] [place] [address] Dr. Bo Soto Cholesterol.total/Cho lesterol in HDL [Mass ratio] 6.2 {ratio} Normal [facility] Comment on above: Performed By: #### L IPID, TSH, FT3, T4, CMP #### [facility] [address] [place] [address] Dr. Bo Soto HDL NORMAL > or = 60 mg/dl - LOW CARDIOVASCULAR RISK <40 mg/dl - HIGH CARDIOVASCULAR RISK Normal [facility] Comment on above: Performed By: #### L IPID, TSH, FT3, T4, CMP #### [facility] [address] [address] [address] Bo Soto LDL CALC NORMAL SEE BELOW Normal [facility] Comment on above: Result Comment: <100 mg/dl OPTIMAL 100 - 129 mg/dl NEAR OR ABOVE OPTIMAL 130 - 159 mg/dl BORDERLINE HIGH 160 - 189 mg/dl HIGH >190 mg/dl VERY HIGH Performed By: #### L IPID, TSH, FT3, T4, CMP #### [facility] [address] [address] [address] Bo Soto Triglyceride [Mass/Vol] 242 mg/dL Critically high <=150 [facility] Comment on above: Performed By: #### L IPID, TSH, FT3, T4, CMP #### [facility] [address] [place] [address] Dr. Bo Soto VLDL CALC 48.4 mg/dL Normal [facility] Comment on above: Performed By: #### L IPID, TSH, FT3, T4, CMP #### [facility] [address] [place] [address] Dr. Bo Soto PROF 14(COMP METB)on 022 Albumin [Mass/Vol] 3.7 g/dL Normal 3.4-5.0 [facility] Comment on above: Performed By: #### L IPID, TSH, FT3, T4, CMP #### [facility] [address] [place] [address] Dr. Bo Soto Albumin/Globulin [Mass ratio] 0.9 {ratio} Normal [facility] Comment on above: Performed By: #### L IPID, TSH, FT3, T4, CMP #### [facility] [address] [place] [address] Dr. Bo Soto ALP [Catalytic activity/Vol] 71 U/L Normal 46-116 [facility] Comment on above: Performed By: #### L IPID, TSH, FT3, T4, CMP #### [facility] [address] [place] [address] Dr. Bo Soto ALT [Catalytic activity/Vol] 23 U/L Normal 14-59 [facility] Comment on above: Performed By: #### L IPID, TSH, FT3, T4, CMP #### [facility] [address] [place] [address] Dr. Bo Soto Anion gap [Moles/Vol] 12.7 mmol/L Normal [facility] Comment on above: Performed By: #### L IPID, TSH, FT3, T4, CMP #### [facility] [address] [place] [address] Dr. Bo Soto AST [Catalytic activity/Vol] 11 U/L Critically low 15-37 [facility] Comment on above: Performed By: #### L IPID, TSH, FT3, T4, CMP #### [facility] [address] [place] [address] Dr. Bo Soto Bilirubin [Mass/Vol] 0.3 mg/dL Normal 0.2-1.0 [facility] Comment on above: Performed By: #### L IPID, TSH, FT3, T4, CMP #### [facility] [address] [place] [address] Dr. Bo Soto Calcium [Mass/Vol] 9.5 mg/dL Normal 8.5-10.1 [facility] Comment on above: Performed By: #### L IPID, TSH, FT3, T4, CMP #### [facility] [address] [place] [address] Dr. Bo Soto Chloride [Moles/Vol] 97 mmol/L Critically low 98-107 [facility] Comment on above: Performed By: #### L IPID, TSH, FT3, T4, CMP #### [facility] [address] [place] [address] Dr. Bo Soto CO2 [Moles/Vol] 26.5 mmol/L Normal 21.0-32.0 [facility] Comment on above: Performed By: #### L IPID, TSH, FT3, T4, CMP #### [facility] [address] [place] [address] Dr. Bo Soto Creatinine [Mass/Vol] 0.92 mg/dL Normal 0.55-1.02 [facility] Comment on above: Performed By: #### L IPID, TSH, FT3, T4, CMP #### [facility] [address] [place] [address] Dr. Bo Soto EGFR-AF NEW ZEALANDER >60 Normal >=60 [facility] Comment on above: Performed By: #### L IPID, TSH, FT3, T4, CMP #### [facility] [address] [place] [address] Dr. Bo Soto EGFR-NON AF NEW ZEALANDER >60 Normal >=60 [facility] Comment on above: Performed By: #### L IPID, TSH, FT3, T4, CMP #### [facility] [address] [place] [address] Dr. Bo Soto Globulin (S) [Mass/Vol] 4.2 g/dL Normal [facility] Comment on above: Performed By: #### L IPID, TSH, FT3, T4, CMP #### [facility] [address] [place] [address] Dr. Bo Soto Glucose [Mass/Vol] 371 mg/dL Critically high 74-106 T [facility] Comment on above: Performed By: #### L IPID, TSH, FT3, T4, CMP #### [facility] [address] [place] [address] Dr. Bo Soto Potassium [Moles/Vol] 4.2 mmol/L Normal 3.5-5.1 [facility] Comment on above: Performed By: #### L IPID, TSH, FT3, T4, CMP #### [facility] [address] [place] [address] Dr. Bo Soto Protein [Mass/Vol] 7.9 g/dL Normal 6.4-8.2 [facility] Comment on above: Performed By: #### L IPID, TSH, FT3, T4, CMP #### [facility] [address] [place] [address] Dr. Bo Soto Sodium [Moles/Vol] 132 mmol/L Critically low 136-145 Th [facility] Comment on above: Performed By: #### L IPID, TSH, FT3, T4, CMP #### [facility] [address] [place] [address] Dr. Bo Soto Urea nitrogen [Mass/Vol] 17.0 mg/dL Normal 7.0-18.0 [facility] Comment on above: Performed By: #### L IPID, TSH, FT3, T4, CMP #### [facility] [address] [place] [address] Dr. Bo Soto Urea nitrogen/Creatinine [Mass ratio] 18.5 mg/mg Normal [facility] Comment on above: Performed By: #### L IPID, TSH, FT3, T4, CMP #### [facility] [address] [place] [address] Dr. Bo Soto T4on 08-23-2022 T4 [Mass/Vol] 10.30 ug/dL Normal 4.80-13.90 [facility] Comment on above: Performed By: #### L IPID, TSH, FT3, T4, CMP #### [facility] [address] [place] [address] Dr. Bo Soto TSHon 08-23-2022 TSH 1.231 uIU/mL Normal 0.358-3.740 [facility] Comment on above: Performed By: #### L IPID, TSH, FT3, T4, CMP #### [facility] [address] [place] [address] Dr. Bo Soto VITAMIN D 25 OHon 08-23-2022 VIT D 25-OH 18.8 ng/mL Normal [facility] Comment on above: Performed By: #### V ITAD #### [facility] [address] [address] [address] Bo Soto VIT D RANGES SEE BELOW Normal [facility] Comment on above: Result Comment: <20 ng/mL Vit D deficient 20 - <30 ng/mL Vit D insufficient 30 - 100 ng/mL Vit D sufficient >100 ng/mL Potential Toxicity Performed By: #### V ITAD #### [facility] [address] [address] [address] Bo Soto Vital Signs Date Time Vital Sign Value Performing Clinician Faci lity 01-09-2025 14:58-0400 Diastolic blood pressure 97 mm[Hg] [facility] 01-09-2025 14:58-0400 Systolic blood pressure 150 mm[Hg] [facility] 01-09-2025 14:51-0400 Body height 154.94 cm [facility] 01-09-2025 14:51-0400 Body mass index (BMI) [Ratio] 30.9 kg/m2 [facility] 01-09-2025 14:51-0400 Body weight 74.2 kg [facility] 01-09-2025 14:51-0400 Heart rate 71 /min [facility] 01-09-2025 14:51-0400 Respiratory rate 18 /min [facility] 01-09-2025 14:51-0400 SaO2% (BldA) [Mass fraction] 100 % [facility] 06-30-2024 14:38-0400 Body height 154.94 cm [facility] 06-30-2024 14:38-0400 Body mass index (BMI) [Ratio] 28.8 kg/m2 [facility] 06-30-2024 14:38-0400 Body weight 69.11 kg [facility] 06-30-2024 14:38-0400 Diastolic blood pressure 91 mm[Hg] [facility] 06-30-2024 14:38-0400 Heart rate 78 /min [facility] 06-30-2024 14:38-0400 Respiratory rate 18 /min [facility] 06-30-2024 14:38-0400 SaO2% (BldA) [Mass fraction] 99 % [facility] 06-30-2024 14:38-0400 Systolic blood pressure 145 mm[Hg] [facility] Encounters Encounter Date Encounter Type Care Provider Facility Start: 01-09-2025 End: 01-09-[address] [facility] Work Phone: Start: 01-09-2025 End: 01-09-2025 Patient encounter procedure [facility] Work Phone: Start: 06-30-2024 End: 06-30-[address] [facility] Work Phone: Start: 06-30-2024 End: 06-30-2024 Patient encounter procedure [facility] Work Phone: Start: 06-21-2024 End: 06-21-[address] [facility] Work Phone: Start: 06-21-2024 End: 06-21-2024 Patient encounter procedure [facility] Work Phone: Start: 05-23-2024 End: 05-23-2024 ambulatory KSEN[facility] Caroline MARIA ELENA Not Available Start: 05-20-2024 End: 05-20-2024 ambulatory KSEN[facility] Velazquez MARIA ELENA Not Available Start: 04-26-2024 End: 04-26-[address] [facility] Work Phone: Start: 04-26-2024 End: 04-26-2024 Patient encounter procedure [facility] Work Phone: Start: 02-18-2024 End: 02-18-2024 Patient encounter procedure [facility] Work Phone: Start: 01-06-2024 End: 01-06-[address] [facility] Work Phone: Start: 01-06-2024 End: 01-06-2024 Patient encounter procedure [facility] Work Phone: Start: 12-15-2023 Non-patient / Non-visit [facility]ly [facility] Physician [facility] Work Phone: Start: 08-23-2022 End: 08-24-[address] BELTRAN LONDON Facility:[facility] Start: 05-01-[address] BELTRAN LONDON Facility :[facility] Start: 09-30-[address] BELTRAN LONDON Facility :[facility] Start: 03-19-2017 End: 03-19-2017 Emergency department patient visit Magnus Rincon Facility:[facility] Plan of Treatment Date Care Activity Detail Author Comprehensive metabo lic 2000 panel - Serum or Plasma [facility] Insulin C-peptide measurement [facility] Patient Education Low blood suga r in people with diabetes [facility] for Diabetics [facility] Work Phone: [facility] Payers Date Payer Category Payer Private Health Insurance [id number] 2017 Private Health Insurance [id number] 1981 Unknown [id number] 1981 Unknown [id number] 1981 Unknown [id number] 1981 Unknown [id number] 1981 Unknown [id number] 1959 Self-pay 1959 Unknown [id number] Unknown [employer] [id number] Social History Date Type Detail [facility] Work Phone: Start: 1980 Sex Assigned At Female F [facility] Start: 06-30-2024 Tobacco smoking stat us LAIS Never smoked tobacco (finding) [facility] Start: 01-09-2025 Sex Female (finding) [facility] Procedure Code Equipment Code Equipment Origin al Text Equipment Identifier Dates Blood Sugar Diagnostic (True Metrix Glucose Test Strip) strip Start: 06-30-2024 Pen Needle, Diab etic (Bd Ultra-Fine Mini Pen Needle) 31 gauge x 3/16 needle Start: 06-30-2024 Blood Sugar Diagnostic (True Metrix Glucose Test Strip) strip Start: 06-30-2024 Pen Needle, Diab etic (Bd Ultra-Fine Mini Pen Needle) 31 gauge x 3/16 needle Start: 06-30-2024 Chief complaint+Reason for visit Narrative Note Date & Type Note Facility Chief complaint+Reason for visit Narrative Reason for Visit BMI 28.0-28.9,adult Dietary counseling and surveillance Hyperlipidemia Hypertension Retinopathy Type 2 diabetes mellitus with hyperglycemia [facility] Work Phone: Evaluation note Note Date & Type Note Facility Evaluation note No assessment information availa ble [facility] Work Phone: Evaluation note Note Date & Type Note Facility Evaluation note Diagnosis Onset Date BMI 28.0-28.9,adult acute Dietary counseling and surveillance acute Hyperlipidemia acute Hypertension acute Retinopathy acute Type 2 diabetes mellitus with hyperglycemia acute [facility] Work Phone: Evaluation note Note Date & Type Note Facility Evaluation note Diagnosis Onset Date Resolution BMI 29.0-29.9,adult acute January 09, 2025 2:46pm Dietary counseling and surveillance acute January 09, 2025 2:46pm Hyperlipidemia acute December 2:46pm Hypertension acute January 09, 2025 2:46pm Positive insulin antibodies acute January 09, 2025 2:46pm Retinopathy acute January 09 025 2:46pm Type 2 diabetes mellitus with hyperglycemia acute January 09 025 2:46pm [facility] Work Phone: Summary Purpose Family History [...] dm follow up 2 mo carb count? Chief Complaint Admit Date 3 month on phone January 09, 2025 2:4 6pm Reason for Visit Admit Date BMI 29.0-29.9,adult January 09, 2025 2:4 6pm Dietary counseling and surveillance Pio h 2024 2:46pm Hyperlipidemia January 09, 2025 2:4 6pm Hypertension January 09, 2025 2:4 6pm Positive insulin antibodies January 09, 2025 2:46pm Retinopathy January 09, 2025 2:4 6pm Type 2 diabetes mellitus with hyperglyce obey January 09, 2025 2:46pm Additional Source Comments INFORMATION SOURCE (unrecogn ized section and content) DATE CREATED AUTHOR [facility] DATE CREATED AUTHOR AUTHOR'S ORGANIZ ATION 08/29/2022 [facility] DATE CREATED AUTHOR AUTHOR'S ORGANIZ ATION 05/24/2024 [facility] Care Teams (unrecognized sec tion and content) Team Status: Active Member Role Status Dates Beltran London MD Primary Care Provider Active Team Status: Inactive Member Role Status Dates Beltran London MD Primary Care Provider Active Start: February 18, 2024 End: February 18, 2024 DB Gibson Attending Provider Active Start: February 18, 2024 End: February 18, 2024 Team Status: Inactive Member Role Status Dates Beltran London MD [...] Team Status: Inactive Member Role Status Dates Beltran London MD Primary Care Provider Active Start: June 21, 2024 End: June 21, [address] LD Attending Provider Active Start: June 21, 2024 End: June 21, 2024 Team Status: Inactive Member Role Status Dates Beltran London MD Primary Care Provider Active Start: June 30, 2024 End: June 30, 2024 Lindy Prieto APRN Attending Provider Active Start: June 30, 2024 End: June 30, 2024 Team Status: Inactive Member Role Status Dates Beltran London MD Primary Care Provider Active Start: January 09, 2025 End: January 09, 2025 Lindy Prieto APRN Attending Provider Active Start: January 09, 2025 End: January 09, 2025 Goals (unrecognized section and content) Goals may [...] BE BASED ON THE PRIMARY CLINICAL RECORDS. [facility]. provides no warranty or guarantee of the accuracy or completeness of information in this document.
[2025-01-14 09:08] LABS: Glucose 179 mg/dL (74-106)
[2025-01-15 14:07] LABS: C-Peptide, Serum 3.5 ng/mL (1.1-4.4)
== END 2025-01-14 08:05 | disposition home or self-care (01) ==
LOC: LAB 08:05
PROVIDERS: PCP Family Medicine
DX: E11.65 Type 2 diabetes mellitus with hyperglycemia (principal); Z79.4 Long term (current) use of insulin
CPT/HCPCS: 36415; 82947; 84681